=== PATIENT | male | born 1960 | race African-American/Black ===

== ENCOUNTER 2019-05-31 11:35 | Inpatient (IN) | payer OTHER ==
--- NOTE | 2019-05-31 12:07 | PDOC ---
History of Present Illness - General Chief Complaint: Asthma Stated Complaint: ASTHMA Time Seen by Provider: 05/31/19 12:04 History Source: Patient Exam Limitations: No Limitations - History of Present Illness Initial Comments: 05/31/19 12:06 PCP: Kalyn Dasilva ([facility]) Pulm: Diogo Pulido ([facility]) HPI: 58yo M PMH COPD (on CPAP overnight), Asthma (multiple agents), Smoker, Afib (eloquis), HTN, Cocaine abuse, BPH, with multiple admissions for asthma and COPD exacerbations at [facility] with shortness of breath since waking up this morning. Patient reports changing air temperature is a common trigger for him and he assumes the recent snow is what aggravated his asthma. Reports he presented for a treatment because his personal nebulizer is at his significant other's home and he did not have access to it this morning. Tried albuterol 2x last night and 2x this morning. Took his 20mg prednisone this AM. These interventions did not help and he called 911. He has been on a steroid taper from 50 mg prednisone BID to 30 mg BID last week and transitioned to 20mg BID yesterday. Received prednisone at a clinic last week, hasn't followed up with PCP for quite some time, missed March appointment --> insurance will not approve some of his medication including prednisone. Received 2 duonebs en route. Multiple admissions at various hospitals (mostly [facility]) for COPD and Asthma exacerbations. All: NKDA Meds: Per chart PMH: As above PSH: Per chart SHx: Smoking (now on Chantix), Hx Cocaine Use Past History - Travel Traveled outside of the country in the last 30 days: No Close contact w/someone who was outside of country & ill: No - Past Medical History Allergies/Adverse Reactions: Allergies Allergy/AdvReac Type Severity Reaction Status Date / Time No Known Allergies Allergy Verified 05/31/19 12:18 Review of Systems - Review of Systems Able to Perform ROS?: Yes Is the patient limited Martiniquais proficient: Yes Constitutional: Yes: Chills. No: Diaphoresis, Fever, Weakness HEENTM: No: Recent change in vision, Nose Congestion, Throat Pain Respiratory: Yes: Cough, Shortness of Breath, Wheezing, Productive cough ( yellow sputum, 1 week). No: SOB with Exertion, SOB at Rest, Hemoptysis Cardiac (ROS): Yes: Chest Tightness (breathing tightness). No: Chest Pain, Irregular Heart Rate ABD/GI: No: Constipated, Diarrhea, Nausea, Vomiting : No: Burning, Dysuria, Discharge Musculoskeletal: No: Muscle Pain, Muscle Weakness, Neck Pain Integumentary: No: Bruising, Erythema, Pruritus, Rash Neurological: No: Headache, Numbness, Tingling, Weakness Psychiatric: No: Stressors, Change in Appetite Endocrine: No: Increased Hunger, Increased Thirst, Change in Weight Hematologic/Lymphatic: No: Anemia, Blood Clots, Easy Bleeding All Other Systems: Reviewed and Negative *Physical Exam - Vital Signs Last Vital Signs Temp Pulse Resp BP Pulse Ox 97.0 F L 84 120/81 93 L 05/31/19 11:47 05/31/19 11:47 05/31/19 11:47 05/31/19 11:47 - Physical Exam 05/31/19 13:13 VITALS: AFVSS, Satting 100% on 8L mask with nebs running GEN: Obese, mild distress, comfortable. AAOx3. HEENT: Edentulous, NC/AT, EOMI, PERRLA. No facial asymmetry. Moist mucous membranes. Normal voice. CV: S1/S2, RRR, no m/r/g appreciated LUNG: Diffuse wheezes throughout all leblanc, no accessory muscle use, on 8L 100 % Sat, no crackles, rales, rhonchi. GI: Soft, ndnt, +BS, no guarding, no rebound. No masses. Neg CVAT b/l. EXTREMITIES: 2+ distal pulses. No LE edema. No obvious deformities of all extremities. SKIN: Warm, dry, no rashes appreciated. PSYCH: Normal mood and affect. NEURO: Moving all extremities well. ED Treatment Course - LABORATORY CBC & Chemistry Diagram: 05/31/19 13:00 05/31/19 13:00 Medical Decision Making - Medical Decision Making 05/31/19 12:55 58yo M PMH COPD (on CPAP overnight), Asthma (multiple agents), Smoker, Afib ( eloquis), HTN, Cocaine abuse, BPH, with multiple admissions for asthma and COPD exacerbations at [facility] with shortness of breath since waking up this morning. History concerning for medication access, compliance, continued smoking. Diffusely wheezing s/p 2x Duonebs en route, satting 100% on 8L with nebs running. DDX includes: Asthma exacerbation vs COPD exacerbation vs PNA vs superimposed Viral URI - CBC, CMP, Mg, Phos, VBG, Coags, Cardiac Profile - CXR, EKG - Continuous monitoring - 125 Solu-medrol - 2x Duonebs >> reassess >> Continuous Nebs - Low threshold for magnesium administration 05/31/19 14:55 - Patient sounds improved, still wheezing - Flu Swab ordered - 2g MgSulfate ordered - CXR with clear lungs Dispo: Admit Med/Surg for astham exacerbation Discharge - Discharge Information Problems reviewed: Yes Clinical Impression/Diagnosis: COPD (chronic obstructive pulmonary disease) Qualifiers: COPD type: unspecified COPD Qualified Code(s): J44.9 - Chronic obstructive pulmonary disease, unspecified Asthma Qualifiers: Asthma severity: unspecified severity Asthma persistence: unspecified Asthma complication type: with acute exacerbation Qualified Code(s): J45.901 - Unspecified asthma with (acute) exacerbation Condition: Guarded - Follow up/Referral Referrals: Chet Ovalle [Primary Care Provider] - - Patient Discharge Instructions - Post Discharge Activity
[2019-05-31] MEDS ORDERED: ALBUTEROL SO4 2.5/IPRATROPIUM 0.5 INH SOL 3 ML VIAL.NEB. NEB ONE ×2 (12:38→12:48)
[2019-05-31] MEDS ORDERED: methylPREDNISolone NA SUCC 125 MG/2 ML VIAL IVPB ONE (12:39)
[2019-05-31] MEDS ORDERED: methylPREDNISolone NA SUCC 125 MG/2 ML VIAL ONE (12:49)
[2019-05-31] MEDS ORDERED: ALBUTEROL SO4 0.083% IH SOL 2.5 MG/3 ML VIAL.NEB. NEB ONE ×2 (13:13→14:27)
--- NOTE | 2019-05-31 13:21 | PDOC ---
Documentation entered by Catherine Gonsalez SCRIBE, acting as scribe for Daniella Young MD. Daniella Young MD: This documentation has been prepared by the Sunshine finch Brenda, SCRIBE, under my direction and personally reviewed by me in its entirety. I confirm that the documentation accurately reflects all work, treatment, procedures, and medical decision making performed by me. Attending Attestation - Resident Resident Name: ColbyMiguel - ED Attending Attestation I have performed the following: I have examined & evaluated the patient, The case was reviewed & discussed with the resident, I agree w/resident's findings & plan, Exceptions are as noted - HPI HPI: 05/31/19 12:30 The patient is a 58 year old male with a PMH COPD/Asthma (quit smoking on FridayMay 28, reports being intubated in the Summer of 2018), Afib, HTN, Cocaine use, BPH who presents to the ER with a complaint of shortness of breath since waking up this morning. Patient reports changing air temperature is a common trigger for him. Reports he presented for a treatment because his personal nebulizer is at his significant other's home and he didn't have access to it this morning. He has been on a steroid taper from 50 mg prednisone BID to 30 mg BID last week and transitioned to 20mg BID yesterday. All: NKDA Meds: Per chart PMH: As above PSH: SHx: Smoking (now on Chantix), Hx Cocaine Use PCP: Yamile 05/31/19 13:04 05/31/19 13:17 05/31/19 13:19 - Physicial Exam PE: 05/31/19 13:06 GENERAL: The patient is in no acute distress. ENT: Ears normal, nares patent, oropharynx clear without exudates. Moist mucous membranes. NECK: Normal range of motion, supple LUNGS: Breath sounds equal, clear to auscultation bilaterally. No wheezes, and no crackles. HEART:Regular rate and rhythm, normal S1 and S2 without murmur, rub or gallop. ABDOMEN: Soft, nontender, normoactive bowel sounds. EXTREMITIES: Normal range of motion, no edema. NEUROLOGICAL: Cranial nerves II through XII grossly intact. Normal speech. No focal neurological deficits. SKIN: Warm, Dry, normal turgor, no rashes or lesions noted. - Medical Decision Making 05/31/19 13:17 58-year-old male presenting to the emergency department with a complaint of shortness of breath Patient states he has been on 2-week taper of prednisone Today started prednisone 20 mg 05/31/19 13:19 EKG: Normal sinus rhythm, rate of 77 bpm, axis is normal, intervals are normal, no ST elevation or depression, T waves are inverted V5, V6 06/02/19 12:37 Laboratory Tests 05/31/19 05/31/19 05/31/19 13:00 13:00 19:25 WBC 5.2 Hgb 14.9 Hct 46.7 Plt Count 259 BUN 19.5 H Creatinine 1.0 Creatine Kinase 90 Troponin I < 0.02 Influenza A (Rapid) Negative Influenza B (Rapid) Negative CXR: no consolidation Pt continues to have wheezing despite nebs and solumedrol Will need to admit given prior history of intubation this past summer Clinical impression: Severe asthma exacerbation, initial presentation
[2019-05-31 13:29] LABS: BASO % 0.5 % (0-2.0); EOS % 0.8 % (0-4.5); HEMATOCRIT 46.7 % (35.4-49); HEMOGLOBIN 14.9 GM/dL (11.7-16.9); LYMPH % 14.9 % (8-40); MCH 25.7 pg (25.7-33.7); MCHC 31.9 g/dl (32.0-35.9); MEAN CELL VOLUME 80.8 fl (80-96); MONO % 10.1 % (3.8-10.2); NEUT % 73.7 % (42.8-82.8); PLATELET COUNT 259 K/MM3 (134-434); RBC 5.78 M/mm3 (4.00-5.60); WHITE BLOOD COUNT 5.2 K/mm3 (4.0-10.0)
[2019-05-31 13:56] LABS: INR 1.23 (0.83-1.09); PROTHROMBIN TIME (PATIENT) 14.5 SEC (9.7-13.0)
[2019-05-31 13:58] LABS: ACTIVATED PTT 37.2 SECONDS (25.2-36.5)
[2019-05-31 14:04] LABS: VENOUS PC02 51.1 mmHg (38-52); VENOUS PH 7.34 (7.31-7.41)
[2019-05-31 14:30] LABS: ALBUMIN 3.3 g/dl (3.4-5.0); ALK PHOS 78 U/L (45-117); ANION GAP 5 MMOL/L (8-16); BILIRUBIN,TOTAL 0.4 mg/dL (0.2-1); BLOOD UREA NITROGEN 19.5 mg/dL (7-18); CALCIUM 8.2 mg/dL (8.5-10.1); CHLORIDE 107 mmol/L (98-107); CO2 28 mmol/L (21-32); GLUCOSE,RANDOM 126 mg/dL (74-106); MAGNESIUM 2.4 mg/dL (1.8-2.4); PHOSPHOROUS 3.6 mg/dL (2.5-4.9); POTASSIUM 4.7 mmol/L (3.5-5.1); SGOT/AST 17 U/L (15-37); SGPT/ALT 33 U/L (13-61); SODIUM 140 mmol/L (136-145); TOT PROT 6.2 g/dl (6.4-8.2)
[2019-05-31] MEDS ORDERED: MAGNESIUM SULF 50% (8.12 MEQ/2 ML-1 GM VIAL) IVPB ONE (14:55)
[2019-05-31] MEDS ORDERED: AZITHROMYCIN IVPB 500 MG/250 ML BAG IVPB ONE ×2 (17:17→18:59)
--- NOTE | 2019-05-31 17:19 | HP ---
CHIEF COMPLAINT: Shortness of breath PCP: HISTORY OF PRESENT ILLNESS: Patient is a 58 year old male is a history of asthma, COPD (prior intubation at [facility] last year), Afib (on Eliquis), benign prostatic hyperplasia , sleep apnea, congestive heart failure, presents with complaint of shortness of breath. Patient admits symptoms started earlier this morning; believes symptoms were exacerbated by recent change in weather, and the snow. He does admit using an aerosol air freshener around the time of the shortness of breath. He attempted to use his Albuterol inhaler however his nebulizer is at his partner's house, and he was unable to use it. Patient admits recent ED presentation to [facility] where he was discharged with Prednisone taper (currently taking 20mg). Denies missing Prednisone doseage since starting taper. He denies recent sick contacts, subjective fevers, chills, chest pain, palpitations, abdominal pain, nausea, vomiting. ER course was notable for: (1) Duo Nebs, MethylPrednisone, Magnesium Sulfate, (2) (3) Recent Travel: denies PAST MEDICAL HISTORY: Asthma, COPD, Afib, BPH, JOEL, CHF, PAST SURGICAL HISTORY: tonsillectomy Social History: Currently unemployed. 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 Lives with roommate. Smoking: Currently smokes 3-4 cigarettes/ day Alcohol: admits social alcohol consumption Drugs: admits smoking cocaine (last used May 17) Allergies No Known Allergies Allergy (Verified 05/31/19 12:18) HOME MEDICATIONS: REVIEW OF SYSTEMS CONSTITUTIONAL: Absent: fever, chills, diaphoresis, generalized weakness, malaise, loss of appetite, weight change HEENT: Absent: rhinorrhea, nasal congestion, throat pain, throat swelling, difficulty swallowing, mouth swelling, ear pain, eye pain, visual changes CARDIOVASCULAR: Absent: chest pain, syncope, palpitations, irregular heart rate, lightheadedness , peripheral edema RESPIRATORY: Admits: shortness of breath, nonproductive cough. Absent: dyspnea with exertion , orthopnea, wheezing, stridor, hemoptysis GASTROINTESTINAL: Absent: abdominal pain, abdominal distension, nausea, vomiting, diarrhea, constipation, melena, hematochezia GENITOURINARY: Absent: dysuria, frequency, urgency, hesitancy, hematuria, flank pain, genital pain MUSCULOSKELETAL: Absent: myalgia, arthralgia, joint swelling, back pain, neck pain SKIN: Absent: rash, itching, pallor HEMATOLOGIC/IMMUNOLOGIC: Absent: easy bleeding, easy bruising, lymphadenopathy, frequent infections ENDOCRINE: Absent: unexplained weight gain, unexplained weight loss, heat intolerance, cold intolerance NEUROLOGIC: Absent: headache, focal weakness or paresthesias, dizziness, unsteady gait, seizure, mental status changes, bladder or bowel incontinence PSYCHIATRIC: Absent: anxiety, depression, suicidal or homicidal ideation, hallucinations. PHYSICAL EXAMINATION Vital Signs - 24 hr 05/31/19 05/31/19 05/31/19 11:47 11:54 15:07 Temperature 97.0 F L 98.2 F Pulse Rate [ 84 83 Left] Blood Pressure 120/83 Blood Pressure 120/81 114/85 [Left] O2 Sat by Pulse 93 L 100 95 Oximetry (%) GENERAL: Awake, alert, and fully oriented, in no acute distress. HEAD: Normal with no signs of trauma. EYES: Pupils equal, round and reactive to light, extraocular movements intact, sclera anicteric, conjunctiva clear. EARS, NOSE, THROAT: Ears normal, nares patent, oropharynx clear without exudates. Moist mucous membranes. NECK: Normal range of motion, supple without lymphadenopathy. LUNGS: Good inspiratory effort, and air entry bilaterally. Expiratory wheezing auscultated bilaterally (left > right). Negative accessory muscle use. HEART: Regular rate and rhythm, normal S1 and S2 without murmur, rub or gallop. ABDOMEN: Obese abdomen. Soft, nontender, nondistended. Normoactive bowel sounds , no guarding, no rebound tenderness. MUSCULOSKELETAL: Normal range of motion at all joints. No bony deformities or tenderness. Strength 5/5 bilateral upper and lower extremities. EXTREMITIES: 2+ radial, dorsalis pedis pulses bilaterally, warm, well-perfused. No cyanosis. No clubbing. No peripheral edema b/l lower extremities. NEUROLOGICAL: Cranial nerves II-XII grossly intact. Normal speech. Negative gross focal deficits. PSYCHIATRIC: Cooperative. Appropriate mood and affect. SKIN: Warm, dry, normal turgor, no rashes or lesions noted, normal capillary refill. Laboratory Results - last 24 hr 05/31/19 05/31/19 05/31/19 13:00 13:00 13:00 WBC 5.2 RBC 5.78 H Hgb 14.9 Hct 46.7 MCV 80.8 MCH 25.7 MCHC 31.9 L RDW 17.0 H Plt Count 259 MPV 8.0 Absolute Neuts (auto) 3.8 Neutrophils % 73.7 Lymphocytes % 14.9 Monocytes % 10.1 Eosinophils % 0.8 Basophils % 0.5 Nucleated RBC % 0 PT with INR 14.50 H INR 1.23 H PTT (Actin FS) 37.2 H VBG pH POC VBG pCO2 POC VBG pO2 VBG HCO3 VBG O2 Sat (Yovany) VBG Base Excess Sodium 140 Potassium 4.7 Chloride 107 Carbon Dioxide 28 Anion Gap 5 L BUN 19.5 H Creatinine 1.0 Est GFR (CKD-EPI)AfAm 97.08 Est GFR (CKD-EPI)NonAf 83.76 Random Glucose 126 H Calcium 8.2 L Phosphorus 3.6 Magnesium 2.4 Total Bilirubin 0.4 AST 17 ALT 33 Alkaline Phosphatase 78 Creatine Kinase 90 Troponin I < 0.02 Total Protein 6.2 L Albumin 3.3 L 05/31/19 13:00 WBC RBC Hgb Hct MCV MCH MCHC RDW Plt Count MPV Absolute Neuts (auto) Neutrophils % Lymphocytes % Monocytes % Eosinophils % Basophils % Nucleated RBC % PT with INR INR PTT (Actin FS) VBG pH 7.34 POC VBG pCO2 51.1 POC VBG pO2 129 H VBG HCO3 26.6 VBG O2 Sat (Yovany) 98.2 H VBG Base Excess 0.4 Sodium Potassium Chloride Carbon Dioxide Anion Gap BUN Creatinine Est GFR (CKD-EPI)AfAm Est GFR (CKD-EPI)NonAf Random Glucose Calcium Phosphorus Magnesium Total Bilirubin AST ALT Alkaline Phosphatase Creatine Kinase Troponin I Total Protein Albumin ASSESSMENT/PLAN: Patient is a 58 year old male is a history of asthma, COPD (prior intubation at [facility] last year), Afib (on Eliquis), benign prostatic hyperplasia , sleep apnea, congestive heart failure, presents with complaint of shortness of breath. COPD exacerbation -Chest radiograph -MethyPrednisone 125mg IV in ED. Continue MethyPrednisone 60mg IV Q8 Hours -DuoNebs Q6 hours standing. Albuterol nebulizer Q4 hours PRN -Patient recieved Magnesium Sulfate 2grams IV in ED -Azithromycin 500mg IV; followed by Axithromycin 250mg IV daily -total three days -Currently saturating well on 3L supplemental oxygen via face mask. Titrate to ensure oxygen saturation greater than 90% -Follow chest radiograph tomorrow morning Afib -Currently rate controlled. Continue Carvedilol 25mg PO BID -Eliquis 5mg PO BID Obstructive sleep apnea -Will continue evening CPAP Systolic heart failure -Currently not in exacerbation -Continue Furosemide 20mg PO BID -Spironolactone 25mg PO daily -Entresto 1 tab PO daily -Obtain cardiac transthoracic ECHO Benign prostatic hyperplasia -Continue Tamsulosin 0.4mg PO daily FEN -No IV fluids indicated -Follow BMP -Sodium controlled diet. Prophylaxis -Eliquis 5mg PO BID Disposition -Admit to medical surgical floor Visit type - Emergency Visit Emergency Visit: Yes ED Registration Date: 05/31/19 Care time: The patient presented to the Emergency Department on the above date and was hospitalized for further evaluation of their emergent condition. - New Patient This patient is new to me today: Yes Date on this admission: 05/31/19 - Critical Care Critical Care patient: No ATTENDING PHYSICIAN STATEMENT I saw and evaluated the patient. I reviewed the resident's note and discussed the case with the resident. I agree with the resident's findings and plan as documented. SUBJECTIVE: OBJECTIVE: ASSESSMENT AND PLAN:
--- NOTE | 2019-05-31 17:36 | PN ---
Teaching Attending Note Name of Resident: Michael Goldberg ATTENDING PHYSICIAN STATEMENT I saw and evaluated the patient. I reviewed the resident's note and discussed the case with the resident. I agree with the resident's findings and plan as documented. SUBJECTIVE: Complains of SOB since last night. No cough/sputum/Hemoptysis/CP. Last cocaine use May 17. OBJECTIVE: Afebrile, Hemodynamically Stable. Last Vital Signs Temp Pulse Resp BP Pulse Ox 98.2 F 83 114/85 95 05/31/19 15:07 05/31/19 15:07 05/31/19 15:07 05/31/19 15:07 HEENT - Atraumatic, Normocephalic. Heart - S1, S2, RRR Lungs - bilateral wheeze. Abdomen - soft, non-tender. Bowel Sounds normal. Extremities - no edema, no calf tenderness. Neuro - AAO x 3. Tone/Power normal all extremities. Laboratory Results - last 24 hr 05/31/19 05/31/19 05/31/19 13:00 13:00 13:00 WBC 5.2 RBC 5.78 H Hgb 14.9 Hct 46.7 MCV 80.8 MCH 25.7 MCHC 31.9 L RDW 17.0 H Plt Count 259 MPV 8.0 Absolute Neuts (auto) 3.8 Neutrophils % 73.7 Lymphocytes % 14.9 Monocytes % 10.1 Eosinophils % 0.8 Basophils % 0.5 Nucleated RBC % 0 PT with INR 14.50 H INR 1.23 H PTT (Actin FS) 37.2 H VBG pH POC VBG pCO2 POC VBG pO2 VBG HCO3 VBG O2 Sat (Yovany) VBG Base Excess Sodium 140 Potassium 4.7 Chloride 107 Carbon Dioxide 28 Anion Gap 5 L BUN 19.5 H Creatinine 1.0 Est GFR (CKD-EPI)AfAm 97.08 Est GFR (CKD-EPI)NonAf 83.76 Random Glucose 126 H Calcium 8.2 L Phosphorus 3.6 Magnesium 2.4 Total Bilirubin 0.4 AST 17 ALT 33 Alkaline Phosphatase 78 Creatine Kinase 90 Troponin I < 0.02 Total Protein 6.2 L Albumin 3.3 L 05/31/19 13:00 WBC RBC Hgb Hct MCV MCH MCHC RDW Plt Count MPV Absolute Neuts (auto) Neutrophils % Lymphocytes % Monocytes % Eosinophils % Basophils % Nucleated RBC % PT with INR INR PTT (Actin FS) VBG pH 7.34 POC VBG pCO2 51.1 POC VBG pO2 129 H VBG HCO3 26.6 VBG O2 Sat (Yovany) 98.2 H VBG Base Excess 0.4 Sodium Potassium Chloride Carbon Dioxide Anion Gap BUN Creatinine Est GFR (CKD-EPI)AfAm Est GFR (CKD-EPI)NonAf Random Glucose Calcium Phosphorus Magnesium Total Bilirubin AST ALT Alkaline Phosphatase Creatine Kinase Troponin I Total Protein Albumin Current Medications Generic Name Dose Route Start Last Admin Trade Name Freq PRN Reason Stop Dose Admin Albuterol Sulfate 1 amp 05/31/19 17:16 Ventolin 0.083% Nebulizer Soln - NEB Q4H PRN SHORT OF BREATH/WHEEZING Albuterol/Ipratropium 1 amp 05/31/19 20:00 Duoneb - NEB RQID CUCA Azithromycin 500 mg in 250 mls @ 250 mls/hr 05/31/19 17:17 Zithromax 500mg Ivpb (Pre-Docked) IVPB 05/31/19 18:16 ONCE ONE Azithromycin 250 mg/ Dextrose 250 mls @ 250 mls/hr 06/01/19 10:00 IVPB 06/03/19 09:59 DAILY CUCA Methylprednisolone Sodium Succinate 40 mg 05/31/19 18:00 Solu-Medrol - IVPUSH Q8H-IV CUCA Home Medications Medication Instructions Recorded Apixaban [Eliquis] 5 mg PO BID 05/31/19 Aspirin [Aspirin EC] 81 mg PO DAILY 05/31/19 Budesonide/Formeterol Fumarate 1 puff IH BID 05/31/19 [SYMBICORT 160/4.5mcg -] Carvedilol 25 mg PO DAILY 05/31/19 Furosemide 20 mg PO BID 05/31/19 Ipratropium/Albuterol Sulfate 1 puff IH Q6H PRN 05/31/19 [Combivent Respimat 20-100 Mcg] Omeprazole 40 mg PO DAILY 05/31/19 Sacubitril/Valsartan [Entresto 24 1 tablet PO DAILY 05/31/19 mg-26 mg Tablet] Spironolactone 25 mg PO DAILY 05/31/19 Tamsulosin HCl 0.4 mg PO DAILY 05/31/19 ASSESSMENT AND PLAN: 58 year old male with history of Asthma/COPD (prior intubation 2018), JOEL on CPAP at night, Polysubstance Abuse (cocaine, tobacco), Atrial fibrillation (on Eliquis), HTN, BPH, CHF, presents with increasing SOB since last evening. Denies productive cough/chest pain/hemoptysis/fevers/chills. 1. Acute Asthma/COPD Exacerbation CXR - no acute cardiopulmonary findings. SpO2 95% on 2L via NC Supplemental O2 as needed, IV Solumedrol, DuoNebs, Azithromycin. Continue Symbicort. Respiratory Status stable. 2. JOEL on CPAP at night- resume 3. Polysubstance Abuse - cocaine, tobacco Unclear if cocaine is involved in current exacerbation, reports last use Apr. Urine toxicology requested. Counseled and offered Nicotine patch. 4. HTN - continue Coreg (consider holding if Utox positive for cocaine), Spironolactone. Entresto. 5. BPH - continue Tamsulosin. 6. Atrial Fibrillation - on Coreg, Eliquis, and ? 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 7. Hx of CHF - on Entresto, Lasix, Spironolactone ?systolic ?sec to cocaine. No evidence of decompensation. No prior Echo on record - Echo ordered. DVT Px - on Eliquis
[2019-05-31] MEDS ORDERED: methylPREDNISolone NA SUCC 40 MG/1 ML VIAL ONE (19:00)
[2019-05-31] MEDS: methylPREDNISolone NA SUCC 40 MG/1 ML VIAL IVPUSH SCH (19:12)
[2019-05-31] MEDS: FUROSEMIDE 20 MG TABLET (FP) PO SCH (21:34)
[2019-05-31] MEDS: APIXABAN 5 MG TABLET PO SCH (21:34)
[2019-05-31] MEDS: ALBUTEROL SO4 2.5/IPRATROPIUM 0.5 INH SOL 3 ML VIAL.NEB. NEB SCH (22:00)
[2019-05-31] MEDS: BUDESONIDE/FORMETEROL FUMARATE 160/4.5 mcg INHALER IH SCH (22:25)
[2019-05-31] MEDS ORDERED: ACETAMINOPHEN 650 MG/20.3 ML ORAL SOLUTION (CUPS) PO ONE (22:38)
[2019-05-31 22:54] LABS: METHADONE, UR NEGATIVE ng/ml (CUTOFF=300); OPIATES, URI NEGATIVE ng/ml (CUTOFF=300); PHENCYCLIDINE,URINE NEGATIVE ng/ml (CUTOFF=25); URINE AMPHETAMINES NEGATIVE ng/ml (CUTOFF=500); URINE BARBITURATES NEGATIVE ng/ml (CUTOFF=200); URINE BENZODIAZEPINES NEGATIVE ng/ml (CUTOFF=200)
[2019-05-31 22:57] LABS: COCAINE, UR POSITIVE ng/ml (CUTOFF=300)
[2019-06-01 00:29] VITALS: BMI 40.4
[2019-06-01] MEDS: methylPREDNISolone NA SUCC 40 MG/1 ML VIAL IVPUSH SCH ×3 (02:25→18:05)
[2019-06-01] MEDS: ALBUTEROL SO4 0.083% IH SOL 2.5 MG/3 ML VIAL.NEB. NEB PRN (03:41)
[2019-06-01 08:10] LABS: HEMATOCRIT 43.3 % (35.4-49); MCHC 32.3 g/dl (32.0-35.9); MEAN CELL VOLUME 80.3 fl (80-96); MEAN PLT VOLUME 8.1 fl (7.5-11.1); PLATELET COUNT 255 K/MM3 (134-434); RBC 5.39 M/mm3 (4.00-5.60); RDW 16.7 % (11.9-15.9); WHITE BLOOD COUNT 5.5 K/mm3 (4.0-10.0)
[2019-06-01 08:23] LABS: ALBUMIN 3.4 g/dl (3.4-5.0); BILIRUBIN,TOTAL 0.3 mg/dL (0.2-1); BLOOD UREA NITROGEN 19.1 mg/dL (7-18); CALCIUM 8.8 mg/dL (8.5-10.1); MAGNESIUM 2.5 mg/dL (1.8-2.4); PHOSPHOROUS 3.2 mg/dL (2.5-4.9); POTASSIUM 4.7 mmol/L (3.5-5.1); TOT PROT 6.6 g/dl (6.4-8.2)
[2019-06-01] MEDS: ALBUTEROL SO4 2.5/IPRATROPIUM 0.5 INH SOL 3 ML VIAL.NEB. NEB SCH ×3 (08:24→20:35)
--- NOTE | 2019-06-01 09:31 | EKG ---
Test Reason : Blood Pressure : / mmHG Vent. Rate : 077 BPM Atrial Rate : 077 BPM P-R Int : 154 ms QRS Dur : 090 ms QT Int : 350 ms P-R-T Axes : 074 -08 041 degrees QTc Int : 396 ms POOR DATA QUALITY, INTERPRETATION MAY BE ADVERSELY AFFECTED NORMAL SINUS RHYTHM POSSIBLE LEFT ATRIAL ENLARGEMENT ANTERIOR INFARCT , AGE UNDETERMINED ABNORMAL ECG NO PREVIOUS ECGS AVAILABLE Confirmed by Mehrdad Rodríguez MD ([id number]) on 06/01/2019 9:30:41 AM Referred By: Confirmed By:Mehrdad Rodríguez MD
[2019-06-01] MEDS ORDERED: ENOXAPARIN NA (PORCINE) 40 MG/0.4 ML DISP.SYRIN SQ SCH (10:00)
[2019-06-01] MEDS ORDERED: PATIENT'S OWN MEDICATION (NON-FORMULARY) (Omeprazole [Omeprazole] 40 MG) PO SCH (10:00)
[2019-06-01] MEDS: BUDESONIDE/FORMETEROL FUMARATE 160/4.5 mcg INHALER IH SCH ×2 (10:41→21:53)
[2019-06-01] MEDS ORDERED: PT OWN MED DRAWER 7, Y5N ONE (10:44)
[2019-06-01] MEDS: PANTOPRAZOLE 40 MG TABLET (FP) PO SCH (10:46)
[2019-06-01] MEDS: TAMSULOSIN HCL 0.4 MG CAP PO SCH (10:46)
[2019-06-01] MEDS: FUROSEMIDE 20 MG TABLET (FP) PO SCH ×2 (10:46→21:47)
[2019-06-01] MEDS: APIXABAN 5 MG TABLET PO SCH ×2 (10:46→21:47)
[2019-06-01] MEDS: SPIRONOLACTONE 25 MG TABLET (FP) PO SCH (10:46)
[2019-06-01] MEDS: CARVEDILOL 25 MG TABLET (FP) PO SCH (10:46)
[2019-06-01] MEDS: ASPIRIN COATED 81 MG TABLET.EC PO SCH (10:47)
[2019-06-01] MEDS: AZITHROMYCIN IVPB 250 MG in DEXTROSE 5%-WATER - 250 ML IVPB SCH (11:20)
--- NOTE | 2019-06-01 12:54 | ECHO ---
Version: 1 Name: ODIN BAZAN Exam: Adult Echocardiogram Study Date: 06/01/2019, 11:33 AM Age: 58 Years MMode/2D Measurements & Calculations LAV (MOD-bp): 60.0 ml Doppler Measurements & Calculations MV E max jesus: 87.3 cm/sec Med E/e': 10.6 MV A max jesus: 79.5 cm/sec Med Peak E' Jesus: 8.3 cm/sec MV E/A: 1.10 Lat E/e': 7.2 Lat Peak E' Jesus: 12.1 cm/sec MR max P.6 mmHg Ao max P.7 mmHg Ao V2 max: 138.5 cm/sec TR max jesus: 243.0 cm/sec TR max P.6 mmHg Procedure The study was technically limited with all images being suboptimal in quality. Left Ventricle The left ventricular size, thickness and function are normal. Ejection Fraction = 55%. Left Ventricu lar Filling pattern is normal for age. Right Ventricle The right ventricle is normal in size and function. Atria Normal left and right atrial size and function. Mitral Valve There is mild mitral annular calcification. There is mild mitral regurgitation. Tricuspid Valve The tricuspid valve is normal in structure and function. There is trace tricuspid regurgitation. Aortic Valve The aortic valve is normal in structure and function. Pulmonic Valve The pulmonic valve is not well visualized. Great Vessels The aortic root is normal size. Normal aortic arch, descending and ascending aorta. Pericardium/Pleura There is no pericardial effusion. Summary Statements The study was technically limited with all images being suboptimal in quality. The left ventricular size, thickness and function are normal Ejection Fraction = 55%. Left Ventricular Filling pattern is normal for age. The right ventricle is normal in size and function. Normal left and right atrial size and function. There is mild mitral annular calcification. There is mild mitral regurgitation. The tricuspid valve is normal in structure and function. There is trace tricuspid regurgitation. The aortic valve is normal in structure and function. The pulmonic valve is not well visualized. The aortic root is normal size. Normal aortic arch, descending and ascending aorta Acosta Hall 06/01/2019, 12:53 PM Ordering Physician: ELFEGO FERNANDEZ Performed By: Vania Rhodes
[2019-06-01] MEDS: SACUBITRIL/VALSARTAN 24 MG-26 MG TABLET PO SCH (14:32)
[2019-06-01] MEDS ORDERED: ALBUTEROL SO4 2.5/IPRATROPIUM 0.5 INH SOL 3 ML VIAL.NEB. NEB SCH (16:00)
--- NOTE | 2019-06-01 18:01 | PN ---
Physical Exam: SUBJECTIVE: Patient seen and examined. Refusing to wear nasal cannula because he complains that it is drying his nose, requesting that we humidify the air. Still complains of SOB. He does not use oxygen at home. Denies chest pain, abd pain, fever, chills. No acute events overnight. Patient able to eat food without issues. OBJECTIVE: Vital Signs Period Temp Pulse Resp BP Sys/Sibley Pulse Ox Last 24 Hr 97.4 F-98.5 F 77-99 18-22 103-131/65-89 98-100 GENERAL: The patient is awake, alert, and fully oriented, in no acute distress. HEAD: Normal with no signs of trauma. EYES: EOMI, no ptosis ENT: dry mucous membranes NECK: Trachea midline, full range of motion, supple. LUNGS: inspiratory and expiratory wheezing bilaterally, no accessory muscle use HEART: Regular rate and rhythm, S1, S2 without murmur, rub or gallop. ABDOMEN: Soft, nontender, nondistended, normoactive bowel sounds, no guarding, no rebound EXTREMITIES: 2+ pulses, warm, well-perfused, no edema. NEUROLOGICAL: Normal speech, gait not observed PSYCH: Normal mood, normal affect SKIN: Warm, dry, normal turgor, no rashes or lesions noted Laboratory Results - last 24 hr 05/31/19 05/31/19 06/01/19 19:25 22:15 07:20 WBC 5.5 RBC 5.39 Hgb 14.0 Hct 43.3 MCV 80.3 MCH 26.0 MCHC 32.3 RDW 16.7 H Plt Count 255 MPV 8.1 Sodium Potassium Chloride Carbon Dioxide Anion Gap BUN Creatinine Est GFR (CKD-EPI)AfAm Est GFR (CKD-EPI)NonAf Random Glucose Calcium Phosphorus Magnesium Total Bilirubin AST ALT Alkaline Phosphatase Total Protein Albumin Opiates Screen Negative Methadone Screen Negative Barbiturate Screen Negative Phencyclidine Screen Negative Ur Amphetamines Screen Negative MDMA (Ecstasy) Screen Negative Benzodiazepines Screen Negative Cocaine Screen Positive A* U Marijuana (THC) Screen Negative Influenza A (Rapid) Negative Influenza B (Rapid) Negative 06/01/19 07:20 WBC RBC Hgb Hct MCV MCH MCHC RDW Plt Count MPV Sodium 140 Potassium 4.7 Chloride 105 Carbon Dioxide 30 Anion Gap 5 L BUN 19.1 H Creatinine 1.0 Est GFR (CKD-EPI)AfAm 97.08 Est GFR (CKD-EPI)NonAf 83.76 Random Glucose 116 H Calcium 8.8 Phosphorus 3.2 Magnesium 2.5 H Total Bilirubin 0.3 AST 12 L ALT 34 Alkaline Phosphatase 77 Total Protein 6.6 Albumin 3.4 Opiates Screen Methadone Screen Barbiturate Screen Phencyclidine Screen Ur Amphetamines Screen MDMA (Ecstasy) Screen Benzodiazepines Screen Cocaine Screen U Marijuana (THC) Screen Influenza A (Rapid) Influenza B (Rapid) Active Medications Generic Name Dose Route Start Last Admin Trade Name Freq PRN Reason Stop Dose Admin Acetaminophen 650 mg 05/31/19 21:03 Tylenol - PO Q6H PRN Fever Or Pain Albuterol Sulfate 1 amp 05/31/19 17:16 06/01/19 03:41 Ventolin 0.083% Nebulizer Soln - NEB 1 amp Q4H PRN Administration SHORT OF BREATH/WHEEZING Albuterol/Ipratropium 1 amp 06/01/19 20:00 Duoneb - NEB RQID [facility]CA Apixaban 5 mg 05/31/19 22:00 06/01/19 10:46 Eliquis - PO 5 mg BID [facility]CA Administration Aspirin 81 mg 06/01/19 10:00 06/01/19 10:47 Ecotrin - PO 81 mg DAILY [facility]CA Administration Budesonide/Formoterol Fumarate 1 puff 05/31/19 22:00 06/01/19 10:41 Symbicort 160/4.5mcg - IH Not Given BID [facility]CA Carvedilol 25 mg 06/01/19 10:00 06/01/19 10:46 Coreg - PO 25 mg DAILY [facility]CA Administration Furosemide 20 mg 05/31/19 22:00 06/01/19 10:46 Lasix - PO 20 mg BID [facility]CA Administration Azithromycin 250 mg/ Dextrose 250 mls @ 250 mls/hr 06/01/19 10:00 06/01/19 11 :20 IVPB 06/03/19 09:59 250 mls/hr DAILY [facility] Administration Methylprednisolone Sodium Succinate 40 mg 05/31/19 18:00 06/01/19 10:46 Solu-Medrol - IVPUSH 40 mg Q8H-IV [facility]CA Administration Pantoprazole Sodium 40 mg 06/01/19 10:00 06/01/19 10:46 Protonix - PO 40 mg DAILY [facility]CA Administration Sacubitril/Valsartan 1 tab 01/07/20 10:00 06/01/19 14:32 Entresto 24 Mg-26 Mg Tablet PO 1 tab DAILY [facility]CA Administration Spironolactone 25 mg 06/01/19 10:00 06/01/19 10:46 Aldactone - PO 25 mg DAILY [facility] Administration Tamsulosin HCl 0.4 mg 06/01/19 10:00 06/01/19 10:46 Flomax - PO 0.4 mg DAILY [facility]CA Administration ASSESSMENT/PLAN: 58 y/o/f with PMHx of asthma, COPD (prior intubation at [facility] last year), Afib (on Eliquis), benign prostatic hyperplasia, sleep apnea, congestive heart failure, presented with complaint of shortness of breath. #COPD exacerbation - Repeat CXR without without acute process seen - MethylPrednisone 125mg IV in ED. Continue MethyPrednisone 60mg IV Q8 Hours - DuoNebs Q6 hours standing. Albuterol nebulizer Q4 hours PRN - Patient recieved Magnesium Sulfate 2grams IV in ED - Azithromycin 500mg IV x1; followed by Axithromycin 250mg IV daily - total three days. started on 05/31 - Currently on nasal cannula, Wean to room air as tolerated #Afib - Currently rate controlled. Continue Carvedilol 25mg PO BID - Eliquis 5mg PO BID #Obstructive sleep apnea - Will continue evening CPAP #Systolic heart failure - Currently not in exacerbation - Continue Furosemide 20mg PO BID - Spironolactone 25mg PO daily - Entresto 1 tab PO daily - ECHO with EF of 55%, no significant abnormalities - CXR without evidence of pleural effusions #Benign prostatic hyperplasia - Continue Tamsulosin 0.4mg PO daily #FEN - No IV fluids indicated - Follow BMP - Sodium controlled diet. #Prophylaxis - Eliquis 5mg PO BID #Disposition - continue to monitor for clinical improvement Visit type - Emergency Visit Emergency Visit: Yes ED Registration Date: 05/31/19 Care time: The patient presented to the Emergency Department on the above date and was hospitalized for further evaluation of their emergent condition. - New Patient This patient is new to me today: Yes Date on this admission: 06/01/19 - Critical Care Critical Care patient: No ATTENDING PHYSICIAN STATEMENT I saw and evaluated the patient. I reviewed the resident's note and discussed the case with the resident. I agree with the resident's findings and plan as documented. SUBJECTIVE: OBJECTIVE: ASSESSMENT AND PLAN:
--- NOTE | 2019-06-01 19:25 | PN ---
Teaching Attending Note Name of Resident: Veronique Christiansen ATTENDING PHYSICIAN STATEMENT I saw and evaluated the patient. I reviewed the resident's note and discussed the case with the resident. I agree with the resident's findings and plan as documented. SUBJECTIVE: SOB , cough . OBJECTIVE: NAD Cv : RRR Lungs: generalized wheezing. Ext : No edema Abd: obese, soft, NT, ND ASSESSMENT AND PLAN: 58 y/o man with h/o COPD (prior intubation 2018), JOEL on CPAP at night, Polysubstance Abuse (cocaine, tobacco), Atrial fibrillation (on Eliquis), HTN, BPH, CHF who presented with worsening SOB and was found to have acute COPD exacerbation 1- Acute COPD exacerbation : - cont steroids, and NEbs - add humidified O2 - azitho for antiinflammatory effect - BIPPA at night - smoking cessation - neg flu swab 2- HTN: cont coreg, Entresto. 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
[2019-06-02] MEDS: methylPREDNISolone NA SUCC 40 MG/1 ML VIAL IVPUSH SCH ×3 (01:33→18:09)
[2019-06-02] MEDS: ACETAMINOPHEN 325 MG TABLET (FP) PO PRN (04:00)
[2019-06-02] MEDS: ALBUTEROL SO4 2.5/IPRATROPIUM 0.5 INH SOL 3 ML VIAL.NEB. NEB SCH ×4 (08:01→20:27)
--- NOTE | 2019-06-02 09:12 | PN ---
Teaching Attending Note Name of Resident: Jessee Booker ATTENDING PHYSICIAN STATEMENT I saw and evaluated the patient. I reviewed the resident's note and discussed the case with the resident. I agree with the resident's findings and plan as documented. Seen and examined; please see resident note for further historical information. I personally verified all escalante historical information and exam findings. Personally interpreted all imaging and diagnostics and reviewed appropriate consults. I reviewed all labs and vital signs as per resident note and EMR as documented. I agree with the above assessment and plan unless supplemented by myself in the following. Being seen by cardiology. 10 item review of systems was completed and is negative aside from history of present illness VS, labs, imaging reviewed NAD, AAO, resting comfortably in bed. RRR s1/2 no mgr Normal muscle tone, moves all 5 extremities with normal apparent strength Neck is supple, trachea midline, no suzanne LN Lungs CTAB with sym expansion NT ND +BS no suzanne organomegaly CN2-12 wnl; no FND NC AT EOMI PERRLA Normal mood, appropriate behavior, euthymic affect No skin breakdown or rashes noted Admission EKG reviewed Echocardiogram reviewed Cardiology consultation reviewed CXR on admission noted; no acute process per radiology A/P: Patient presents with shortness of breath secondary to COPD exacerbation, potential component from cocaine abuse. Pending pulmonology consultation Problems include: -Acute on chronic respiratory failure 2/2 COPD exacerbation (Recent OP tx failure; on steroids and bronchodilators with humidified O2 PRN. Complicated by obstructive sleep apnea. Counseled regarding smoking cessation. Continue azithromycin for anti-inflammatory effect. Flu swab noted to be negative. Admission chest x-ray noted. Echo noted; check BNP. Pending pulmonology consultation) -History of uncontrolled hypertension; Coreg, Entresto will be continued. -Cocaine abuse, counseling offered. -History of atrial fibrillation, elevated CV2 score on Eliquis. Baseline NYHA I -II symptoms -History of BPH -History of CHF on Entresto (LVEF noted to be normal; FU BMP and continue home meds) -Morbid Obesity (BMI 39.9; r/o pickwickian syndrome) -JOEL on NIMV qHS Full Code
[2019-06-02 09:20] LABS: ALBUMIN 3.3 g/dl (3.4-5.0); BILIRUBIN,TOTAL 0.4 mg/dL (0.2-1); BLOOD UREA NITROGEN 17.4 mg/dL (7-18); CALCIUM 8.3 mg/dL (8.5-10.1); POTASSIUM 4.6 mmol/L (3.5-5.1); TOT PROT 6.4 g/dl (6.4-8.2)
--- NOTE | 2019-06-02 09:32 | PN ---
Physical Exam: SUBJECTIVE: Patient seen and examined. States that his breathing is feeling better today compared to yesterday. Denies chest pain, abd pain, fever, chills. No acute events overnight. OBJECTIVE: Vital Signs Period Temp Pulse Resp BP Sys/Sibley Pulse Ox Last 24 Hr 97.8 F-98.2 F 63-84 20-24 119-139/70-84 94-98 GENERAL: The patient is awake, alert, and fully oriented, in no acute distress. HEAD: Normal with no signs of trauma. EYES: EOMI, no ptosis ENT: dry mucous membranes NECK: Trachea midline, full range of motion, supple. LUNGS: inspiratory and expiratory wheezing bilaterally, no accessory muscle use HEART: irregularly irregular ABDOMEN: Soft, nontender, nondistended, normoactive bowel sounds, no guarding, no rebound EXTREMITIES: 2+ pulses, warm, well-perfused, no edema NEUROLOGICAL: Normal speech, gait not observed PSYCH: Normal mood, normal affect SKIN: Warm, dry, normal turgor, no rashes or lesions noted Active Medications Generic Name Dose Route Start Last Admin Trade Name Freq PRN Reason Stop Dose Admin Acetaminophen 650 mg 05/31/19 21:03 06/02/19 04:00 Tylenol - PO 650 mg Q6H PRN Administration Fever Or Pain Albuterol Sulfate 1 amp 05/31/19 17:16 06/01/19 03:41 Ventolin 0.083% Nebulizer Soln - NEB 1 amp Q4H PRN Administration SHORT OF BREATH/WHEEZING Albuterol/Ipratropium 1 amp 06/01/19 20:00 06/02/19 08:01 Duoneb - NEB 1 amp RQID CUCA Administration Apixaban 5 mg 05/31/19 22:00 06/01/19 21:47 Eliquis - PO 5 mg BID CUCA Administration Aspirin 81 mg 06/01/19 10:00 06/01/19 10:47 Ecotrin - PO 81 mg DAILY CUCA Administration Budesonide/Formoterol Fumarate 1 puff 05/31/19 22:00 06/01/19 21:53 Symbicort 160/4.5mcg - IH Not Given BID CUCA Carvedilol 25 mg 06/01/19 10:00 06/01/19 10:46 Coreg - PO 25 mg DAILY CUCA Administration Furosemide 20 mg 05/31/19 22:00 06/01/19 21:47 Lasix - PO 20 mg BID CUCA Administration Azithromycin 250 mg/ Dextrose 250 mls @ 250 mls/hr 06/01/19 10:00 06/01/19 11 :20 IVPB 06/03/19 09:59 250 mls/hr DAILY CUCA Administration Methylprednisolone Sodium Succinate 40 mg 05/31/19 18:00 06/02/19 01:33 Solu-Medrol - IVPUSH 40 mg Q8H-IV CUCA Administration Pantoprazole Sodium 40 mg 06/01/19 10:00 06/01/19 10:46 Protonix - PO 40 mg DAILY CUCA Administration Sacubitril/Valsartan 1 tab 06/01/19 10:00 06/01/19 14:32 Entresto 24 Mg-26 Mg Tablet PO 1 tab DAILY CUCA Administration Spironolactone 25 mg 06/01/19 10:00 06/01/19 10:46 Aldactone - PO 25 mg DAILY CUCA Administration Tamsulosin HCl 0.4 mg 06/01/19 10:00 06/01/19 10:46 Flomax - PO 0.4 mg DAILY CUCA Administration Tiotropium [place] 2 puff 06/02/19 10:00 Spiriva Respimat IH DAILY CUCA ASSESSMENT/PLAN: 58 y/o/f with PMHx of asthma, COPD (prior intubation at [facility] last year), Afib (on Eliquis), benign prostatic hyperplasia, sleep apnea, congestive heart failure, presented with complaint of shortness of breath. #COPD exacerbation - Repeat CXR without acute process seen. - MethylPrednisone 125mg IV in ED. Continue MethyPrednisone 40mg IV Q8 Hours - DuoNebs Q6h standing. Albuterol nebulizer Q4 hours PRN. - Started on Tiotropium [place] 2puffs daily - Patient recieved Magnesium Sulfate 2grams IV in ED - Azithromycin 500mg IV x1; followed by Axithromycin 250mg IV daily - total three days. started on 05/31 - Wean to room air as tolerated - Pre/Post ordered to assess oxygen needs - Pulm consulted #Afib - Currently rate controlled. Continue Carvedilol 25mg PO BID - Eliquis 5mg PO BID #Obstructive sleep apnea - Will continue evening CPAP #Systolic heart failure - Currently not in exacerbation - Continue Furosemide 20mg PO BID - Spironolactone 25mg PO daily - Entresto 1 tab PO daily - ECHO with EF of 55%, no significant abnormalities - CXR without evidence of pleural effusions - BNP 279 #Benign prostatic hyperplasia - Continue Tamsulosin 0.4mg PO daily #FEN - No IV fluids indicated - Monitor and replete lytes as needed - Sodium controlled diet. #Prophylaxis - Eliquis 5mg PO BID #Disposition - continue to monitor for clinical improvement Visit type - Emergency Visit Emergency Visit: Yes ED Registration Date: 05/31/19 Care time: The patient presented to the Emergency Department on the above date and was hospitalized for further evaluation of their emergent condition. - New Patient This patient is new to me today: No - Critical Care Critical Care patient: No ATTENDING PHYSICIAN STATEMENT I saw and evaluated the patient. I reviewed the resident's note and discussed the case with the resident. I agree with the resident's findings and plan as documented. SUBJECTIVE: OBJECTIVE: ASSESSMENT AND PLAN:
[2019-06-02] MEDS: BUDESONIDE/FORMETEROL FUMARATE 160/4.5 mcg INHALER IH SCH ×2 (10:01→22:29)
[2019-06-02] MEDS ORDERED: PT OWN MED DRAWER 7, Y5N ONE (10:12)
[2019-06-02] MEDS: AZITHROMYCIN IVPB 250 MG in DEXTROSE 5%-WATER - 250 ML IVPB SCH (10:27)
[2019-06-02] MEDS: TIOTROPIUM BROMIDE 2.5 MCG (SPIRIVA) RESPIMAT INHALER IH SCH (10:27)
[2019-06-02] MEDS: PANTOPRAZOLE 40 MG TABLET (FP) PO SCH (10:32)
[2019-06-02] MEDS: FUROSEMIDE 20 MG TABLET (FP) PO SCH ×2 (10:32→22:29)
[2019-06-02] MEDS: TAMSULOSIN HCL 0.4 MG CAP PO SCH (10:35)
[2019-06-02] MEDS: SACUBITRIL/VALSARTAN 24 MG-26 MG TABLET PO SCH (10:36)
[2019-06-02] MEDS: SPIRONOLACTONE 25 MG TABLET (FP) PO SCH (10:36)
[2019-06-02] MEDS: CARVEDILOL 25 MG TABLET (FP) PO SCH (10:36)
[2019-06-02] MEDS: ASPIRIN COATED 81 MG TABLET.EC PO SCH (10:36)
[2019-06-02] MEDS: APIXABAN 5 MG TABLET PO SCH ×2 (10:36→22:29)
[2019-06-03] MEDS: ALBUTEROL SO4 0.083% IH SOL 2.5 MG/3 ML VIAL.NEB. NEB PRN (02:15)
[2019-06-03] MEDS: methylPREDNISolone NA SUCC 40 MG/1 ML VIAL IVPUSH SCH ×3 (02:39→17:45)
[2019-06-03] MEDS: ALBUTEROL SO4 2.5/IPRATROPIUM 0.5 INH SOL 3 ML VIAL.NEB. NEB SCH ×4 (07:50→21:55)
[2019-06-03] MEDS: ACETAMINOPHEN 325 MG TABLET (FP) PO PRN ×2 (08:04→20:23)
[2019-06-03 09:51] LABS: BLOOD UREA NITROGEN 23.1 mg/dL (7-18); CALCIUM 8.5 mg/dL (8.5-10.1); POTASSIUM 4.4 mmol/L (3.5-5.1)
[2019-06-03] MEDS ORDERED: SODIUM CHLORIDE NASAL SPRAY 44 ML BOTTLE NS PRN (10:02)
--- NOTE | 2019-06-03 10:12 | CON.PULM ---
Consult Consult Specialty:: PULM/CCM Referred by:: Hospitalist Reason for Consultation:: SOB / COPD - History of Present Illness Chief Complaint: SOB History of Present Illness: 58 M, COPD due to smoking, prior intubation at [facility] last year, unlikely true asthma, Afib (on Eliquis), CHF, benign prostatic hyperplasia, Obstructive Sleep Apnea diagnosed at [facility] on CPAP (settings not known) and follows with Dr Andrea in [place], and congestive heart failure. Admitted via the ER due to progressive shortness of breath for the past few days. He feels the change in weather has exacerbated his symptoms. No travel history or sick contacts. Recent evaluation to [facility] where he was discharged with Prednisone taper, currently taking 20mg OD. CXR: No acute process - History Source History Provided By: Patient Limitations to Obtaining History: No Limitations - Past Medical History Pulmonary: Yes: Bronchitis, COPD, Pneumonia, Previously Intubated, Sleep Apnea. No: Asthma, Cancer, O2 Dependent, Pulmonary Embolus, Pulmonary Fibrosis - Alcohol/Substance Use Hx Alcohol Use: No - Smoking History Smoking history: Current every day smoker Have you smoked in the past 12 months: Yes Aproximately how many cigarettes per day: 10 Home Medications - Allergies Allergies/Adverse Reactions: Allergies Allergy/AdvReac Type Severity Reaction Status Date / Time ibuprofen [From Motrin] AdvReac Verified 06/01/19 15:29 - Home Medications Home Medications: Ambulatory Orders Apixaban [Eliquis] 5 mg PO BID 05/31/19 Aspirin [Aspirin EC] 81 mg PO DAILY 05/31/19 Budesonide/Formeterol Fumarate [SYMBICORT 160/4.5mcg -] 1 puff IH BID 05/31/19 Carvedilol 25 mg PO DAILY 05/31/19 Furosemide 20 mg PO BID 05/31/19 Ipratropium/Albuterol Sulfate [Combivent Respimat 20-100 Mcg] 1 puff IH Q6H PRN 05/31/19 Omeprazole 40 mg PO DAILY 05/31/19 Sacubitril/Valsartan [Entresto 24 mg-26 mg Tablet] 1 tablet PO DAILY 05/31/19 Spironolactone 25 mg PO DAILY 05/31/19 Tamsulosin HCl 0.4 mg PO DAILY 05/31/19 Review of Systems - Review of Systems Constitutional: reports: Malaise. denies: Chills, Fever, Night Sweats Eyes: reports: No Symptoms HENT: reports: No Symptoms Neck: reports: No Symptoms Cardiovascular: reports: Shortness of Breath. denies: Chest Pain, Edema, Palpitations Respiratory: reports: Cough, Orthopnea, Snoring, SOB, SOB on Exertion, Wheezing. denies: Hemoptysis Gastrointestinal: reports: No Symptoms Genitourinary: reports: No Symptoms Breasts: reports: No Symptoms Reported Musculoskeletal: reports: Back Pain Integumentary: reports: No Symptoms Neurological: reports: No Symptoms Endocrine: reports: No Symptoms Hematology/Lymphatic: reports: No Symptoms Psychiatric: reports: No Symptoms Physical Exam Vital Sings: Vital Signs Temperature 97.7 F 06/03/19 06:24 Pulse Rate 61 06/03/19 06:24 Respiratory Rate 06/03/19 06:24 Blood Pressure 134/89 06/03/19 06:24 O2 Sat by Pulse Oximetry (%) 98 06/02/19 22:00 Constitutional: Yes: No Distress, Obese Eyes: Yes: Conjunctiva Clear, EOM Intact HENT: Yes: Atraumatic, Pharyngeal Erythema Neck: Yes: Supple, Trachea Midline Cardiovascular: Yes: Pulse Irregular Respiratory: Yes: Diminished, On Nasal O2, Rhonchi, SOB on Exertion, Tachypnea, Wheezes. No: Accessory Muscle Use, Rales, SOB, Stridor ...Inspection: Yes: WNL ...Clubbing: No Gastrointestinal: Yes: Normal Bowel Sounds, Soft, Abdomen, Obese Renal/: Yes: WNL Musculoskeletal: Yes: WNL Extremities: Yes: WNL Edema: No Peripheral Pulses WNL: Yes Integumentary: Yes: WNL Neurological: Yes: WNL, Alert, Oriented ...Motor Strength: WNL Psychiatric: Yes: WNL, Alert, Oriented Labs: CBC, BMP 06/01/19 07:20 06/03/19 08:38 Imaging - Results Chest X-ray: Report Reviewed, Image Reviewed Problem List - Problems (1) Acute exacerbation of chronic obstructive pulmonary disease (COPD) Code(s): J44.1 - CHRONIC OBSTRUCTIVE PULMONARY DISEASE W (ACUTE) EXACERBATION (2) Sleep apnea Code(s): G47.30 - SLEEP APNEA, UNSPECIFIED (3) BPH (benign prostatic hyperplasia) Code(s): N40.0 - BENIGN PROSTATIC HYPERPLASIA WITHOUT LOWER URINRY TRACT SYMP (4) COPD (chronic obstructive pulmonary disease) Code(s): J44.9 - CHRONIC OBSTRUCTIVE PULMONARY DISEASE, UNSPECIFIED Qualifiers: COPD type: unspecified COPD Qualified Code(s): J44.9 - Chronic obstructive pulmonary disease, unspecified (5) Afib Code(s): I48.91 - UNSPECIFIED ATRIAL FIBRILLATION (6) CHF (congestive heart failure) Code(s): I50.9 - HEART FAILURE, UNSPECIFIED Assessment/Plan Medrol BD TX standing and PRN, avoid LAMA and HERBERT (spiriva was discontinued) Noted Zithromax, doubt bacterial infection O2 as needed No smoking counseled Nasal Saline Fluticasone nasal spray Cardiac meds as ordered NIPPV support QHS and PRN Will follow Thank you Dr Herrera
[2019-06-03] MEDS: CARVEDILOL 25 MG TABLET (FP) PO SCH (10:42)
[2019-06-03] MEDS: SPIRONOLACTONE 25 MG TABLET (FP) PO SCH (10:42)
[2019-06-03] MEDS: ASPIRIN COATED 81 MG TABLET.EC PO SCH (10:42)
[2019-06-03] MEDS: TAMSULOSIN HCL 0.4 MG CAP PO SCH (10:42)
[2019-06-03] MEDS: PANTOPRAZOLE 40 MG TABLET (FP) PO SCH (10:42)
[2019-06-03] MEDS: APIXABAN 5 MG TABLET PO SCH ×2 (10:42→21:48)
[2019-06-03] MEDS: FUROSEMIDE 20 MG TABLET (FP) PO SCH ×2 (10:42→21:49)
[2019-06-03] MEDS: FLUTICASONE PROP 0.05% 16 GM NASAL SPRAY NS SCH (10:43)
[2019-06-03] MEDS: BUDESONIDE/FORMETEROL FUMARATE 160/4.5 mcg INHALER IH SCH ×3 (10:49→21:48)
[2019-06-03] MEDS: SACUBITRIL/VALSARTAN 24 MG-26 MG TABLET PO SCH (10:51)
[2019-06-03] MEDS ORDERED: PT OWN MED DRAWER 7, Y5N ONE (10:51)
[2019-06-03] MEDS: TIOTROPIUM BROMIDE 2.5 MCG (SPIRIVA) RESPIMAT INHALER IH SCH (12:32)
--- NOTE | 2019-06-03 17:43 | PN ---
Physical Exam: SUBJECTIVE: Patient seen and examined. No acute events overnight. Patient complains of mild left ankle swelling. Still complains of some SOB. Denies chest pain, abd pain, fever, chills, or other concerns. OBJECTIVE: Vital Signs Period Temp Pulse Resp BP Sys/Sibley Pulse Ox Last 24 Hr 97.7 F-98.9 F 61-96 17-20 126-147/69-90 97-98 GENERAL: The patient is awake, alert, and fully oriented, in no acute distress. HEAD: Normal with no signs of trauma. EYES: EOMI, no ptosis ENT: dry mucous membranes NECK: Trachea midline, full range of motion, supple. LUNGS: diffuse inspiratory and expiratory wheezing bilaterally, no accessory muscle use HEART: irregularly irregular ABDOMEN: Soft, nontender, nondistended, normoactive bowel sounds, no guarding, no rebound EXTREMITIES: 2+ pulses, warm, well-perfused, no edema NEUROLOGICAL: Normal speech, gait not observed. sensation intact throughout PSYCH: Normal mood, normal affect SKIN: Warm, dry, normal turgor, no rashes or lesions noted Laboratory Results - last 24 hr 06/03/19 08:38 Sodium 139 Potassium 4.4 Chloride 103 Carbon Dioxide 32 Anion Gap 4 L BUN 23.1 H Creatinine 1.0 Est GFR (CKD-EPI)AfAm 97.08 Est GFR (CKD-EPI)NonAf 83.76 Random Glucose 101 Calcium 8.5 Active Medications Generic Name Dose Route Start Last Admin Trade Name Freq PRN Reason Stop Dose Admin Acetaminophen 650 mg 05/31/19 21:03 06/03/19 08:04 Tylenol - PO 650 mg Q6H PRN Administration Fever Or Pain Albuterol Sulfate 1 amp 05/31/19 17:16 06/03/19 02:15 Ventolin 0.083% Nebulizer Soln - NEB 1 amp Q4H PRN Administration SHORT OF BREATH/WHEEZING Albuterol/Ipratropium 1 amp 06/01/19 20:00 06/03/19 11:15 Duoneb - NEB 1 amp RQID CUCA Administration Apixaban 5 mg 05/31/19 22:00 06/03/19 10:42 Eliquis - PO 5 mg BID CUCA Administration Aspirin 81 mg 06/01/19 10:00 06/03/19 10:42 Ecotrin - PO 81 mg DAILY CUCA Administration Budesonide/Formoterol Fumarate 2 puff 06/03/19 10:15 06/03/19 10:49 Symbicort 160/4.5mcg - IH Not Given BID CUCA Carvedilol 25 mg 06/01/19 10:00 06/03/19 10:42 Coreg - PO 25 mg DAILY CUCA Administration Fluticasone Propionate 2 spray 06/03/19 10:15 06/03/19 10:43 Flonase - NS 2 sprays DAILY CUCA Administration Furosemide 20 mg 05/31/19 22:00 06/03/19 10:42 Lasix - PO 20 mg BID CUCA Administration Methylprednisolone Sodium Succinate 40 mg 05/31/19 18:00 06/03/19 11:14 Solu-Medrol - IVPUSH 40 mg Q8H-IV CUCA Administration Pantoprazole Sodium 40 mg 06/01/19 10:00 06/03/19 10:42 Protonix - PO 40 mg DAILY CUCA Administration Sacubitril/Valsartan 1 tab 06/01/19 10:00 06/03/19 10:51 Entresto 24 Mg-26 Mg Tablet PO 1 tab DAILY CUCA Administration Sodium Chloride 2 spray 06/03/19 10:02 [place] - NS TID PRN NASAL CONGESTION Spironolactone 25 mg 06/01/19 10:00 06/03/19 10:42 Aldactone - PO 25 mg DAILY CUCA Administration Tamsulosin HCl 0.4 mg 06/01/19 10:00 06/03/19 10:42 Flomax - PO 0.4 mg DAILY CUCA Administration ASSESSMENT/PLAN: 58 y/o/f with PMHx of asthma, COPD (prior intubation at [facility] last year), Afib (on Eliquis), benign prostatic hyperplasia, sleep apnea, congestive heart failure, presented with complaint of shortness of breath. #COPD exacerbation - Repeat CXR without acute process seen. - MethylPrednisone 125mg IV in ED. Continue MethyPrednisone 40mg IV Q8 Hours - DuoNebs Q6h standing. Albuterol nebulizer Q4 hours PRN. - Patient recieved Magnesium Sulfate 2grams IV in ED - Azithromycin discontinued - Wean to room air as tolerated - Pre/Post ordered to assess oxygen needs - Pulm consulted - avoid LAMA and HERBERT - NIPPV support QHS and PRN #Afib - Currently rate controlled. Continue Carvedilol 25mg PO BID - Eliquis 5mg PO BID #Obstructive sleep apnea - Will continue evening CPAP #Systolic heart failure - Currently not in exacerbation - Continue Furosemide 20mg PO BID - Spironolactone 25mg PO daily - Entresto 1 tab PO daily - ECHO with EF of 55%, no significant abnormalities - CXR without evidence of pleural effusions - BNP 279 #Benign prostatic hyperplasia - Continue Tamsulosin 0.4mg PO daily #FEN - No IV fluids indicated - Monitor and replete lytes as needed - Sodium controlled diet. #Prophylaxis - Eliquis 5mg PO BID #Disposition - continue to monitor for clinical improvement Visit type - Emergency Visit Emergency Visit: Yes ED Registration Date: 05/31/19 Care time: The patient presented to the Emergency Department on the above date and was hospitalized for further evaluation of their emergent condition. - New Patient This patient is new to me today: No - Critical Care Critical Care patient: No ATTENDING PHYSICIAN STATEMENT I saw and evaluated the patient. I reviewed the resident's note and discussed the case with the resident. I agree with the resident's findings and plan as documented. SUBJECTIVE: OBJECTIVE: ASSESSMENT AND PLAN:
--- NOTE | 2019-06-03 19:23 | PN ---
Teaching Attending Note Name of Resident: Jessee Booker ATTENDING PHYSICIAN STATEMENT I saw and evaluated the patient. I reviewed the resident's note and discussed the case with the resident. I agree with the resident's findings and plan as documented. Somewhat improved, exam with continued wheezes. Pulm consulted yesterday 10 sys ROS done and neg aside from HPI -Acute on chronic respiratory failure 2/2 COPD exacerbation (Recent OP tx failure; on steroids and bronchodilators with humidified O2 PRN. Complicated by obstructive sleep apnea. Counseled regarding smoking cessation. Continue azithromycin for anti-inflammatory effect. Flu swab noted to be negative. Admission chest x-ray noted. Echo noted; check BNP. Pending pulmonology consultation) -History of uncontrolled hypertension; Coreg, Entresto will be continued. -Cocaine abuse, counseling offered. -History of atrial fibrillation, elevated CV2 score on Eliquis. Baseline NYHA I -II symptoms -History of BPH -History of CHF on Entresto (LVEF noted to be normal; FU BMP and continue home meds) -Morbid Obesity (BMI 39.9; r/o pickwickian syndrome) -JOEL on NIMV qHS
[2019-06-04] MEDS: methylPREDNISolone NA SUCC 40 MG/1 ML VIAL IVPUSH SCH ×3 (02:58→17:40)
--- NOTE | 2019-06-04 07:38 | PN ---
Physical Exam: SUBJECTIVE: Patient seen and examined. Complains that he still has SOB. Denies chest pain, abd pain, fever, chills. States that he is coughing and spitting up a lot of phlegm today. OBJECTIVE: Vital Signs Period Temp Pulse Resp BP Sys/Sibley Pulse Ox Last 24 Hr 97.6 F-98.6 F 64-87 17-18 112-147/70-94 98-98 GENERAL: The patient is awake, alert, and fully oriented, in no acute distress. HEAD: Normal with no signs of trauma. EYES: EOMI, no ptosis ENT: dry mucous membranes NECK: Trachea midline, full range of motion, supple. LUNGS: diffuse inspiratory and expiratory wheezing bilaterally, no accessory muscle use HEART: irregularly irregular ABDOMEN: Soft, nontender, nondistended, normoactive bowel sounds, no guarding, no rebound EXTREMITIES: 2+ pulses, warm, well-perfused, no edema NEUROLOGICAL: Normal speech, gait not observed. sensation intact throughout PSYCH: Normal mood, normal affect SKIN: Warm, dry, normal turgor, no rashes or lesions noted Laboratory Results - last 24 hr 06/03/19 08:38 Sodium 139 Potassium 4.4 Chloride 103 Carbon Dioxide 32 Anion Gap 4 L BUN 23.1 H Creatinine 1.0 Est GFR (CKD-EPI)AfAm 97.08 Est GFR (CKD-EPI)NonAf 83.76 Random Glucose 101 Calcium 8.5 Active Medications Generic Name Dose Route Start Last Admin Trade Name Freq PRN Reason Stop Dose Admin Acetaminophen 650 mg 05/31/19 21:03 06/03/19 20:23 Tylenol - PO 650 mg Q6H PRN Administration Fever Or Pain Albuterol Sulfate 1 amp 05/31/19 17:16 06/03/19 02:15 Ventolin 0.083% Nebulizer Soln - NEB 1 amp Q4H PRN Administration SHORT OF BREATH/WHEEZING Albuterol/Ipratropium 1 amp 06/01/19 20:00 06/03/19 21:55 Duoneb - NEB 1 amp RQID CUCA Administration Apixaban 5 mg 05/31/19 22:00 06/03/19 21:48 Eliquis - PO 5 mg BID CUCA Administration Aspirin 81 mg 06/01/19 10:00 06/03/19 10:42 Ecotrin - PO 81 mg DAILY CUCA Administration Budesonide/Formoterol Fumarate 2 puff 06/03/19 10:15 06/03/19 21:48 Symbicort 160/4.5mcg - IH Not Given BID CUCA Carvedilol 25 mg 06/01/19 10:00 06/03/19 10:42 Coreg - PO 25 mg DAILY CUCA Administration Fluticasone Propionate 2 spray 06/03/19 10:15 06/03/19 10:43 Flonase - NS 2 sprays DAILY CUCA Administration Furosemide 20 mg 05/31/19 22:00 06/03/19 21:49 Lasix - PO 20 mg BID CUCA Administration Methylprednisolone Sodium Succinate 40 mg 05/31/19 18:00 06/04/19 02:58 Solu-Medrol - IVPUSH 40 mg Q8H-IV CUCA Administration Pantoprazole Sodium 40 mg 06/01/19 10:00 06/03/19 10:42 Protonix - PO 40 mg DAILY CUCA Administration Sacubitril/Valsartan 1 tab 06/01/19 10:00 06/03/19 10:51 Entresto 24 Mg-26 Mg Tablet PO 1 tab DAILY CUCA Administration Sodium Chloride 2 spray 06/03/19 10:02 [place] Nasal [place] - NS TID PRN NASAL CONGESTION Spironolactone 25 mg 06/01/19 10:00 06/03/19 10:42 Aldactone - PO 25 mg DAILY CUCA Administration Tamsulosin HCl 0.4 mg 06/01/19 10:00 06/03/19 10:42 Flomax - PO 0.4 mg DAILY CUCA Administration ASSESSMENT/PLAN: 58 y/o/f with PMHx of asthma, COPD (prior intubation at [facility] last year), Afib (on Eliquis), benign prostatic hyperplasia, sleep apnea, congestive heart failure, presented with complaint of shortness of breath. #COPD exacerbation - Repeat CXR without acute process seen. - MethylPrednisone 125mg IV in ED. Continue MethyPrednisone 40mg IV Q8 Hours - DuoNebs Q6h standing. Albuterol nebulizer Q4 hours PRN. - Patient recieved Magnesium Sulfate 2grams IV in ED - Azithromycin discontinued - Wean to room air as tolerated - Pre/Post showed a post O2 saturation of 87% - Pulm consulted - avoid LAMA and HERBERT - NIPPV support QHS and PRN #Afib - Currently rate controlled. Continue Carvedilol 25mg PO BID - Eliquis 5mg PO BID #Obstructive sleep apnea - Will continue evening CPAP #Systolic heart failure - Currently not in exacerbation - Continue Furosemide 20mg PO BID - Spironolactone 25mg PO daily - Entresto 1 tab PO daily - ECHO with EF of 55%, no significant abnormalities - CXR without evidence of pleural effusions - BNP 279 #Benign prostatic hyperplasia - Continue Tamsulosin 0.4mg PO daily #FEN - No IV fluids indicated - Monitor and replete lytes as needed - Sodium controlled diet. #Prophylaxis - Eliquis 5mg PO BID #Disposition - continue to monitor for clinical improvement Visit type - Emergency Visit Emergency Visit: Yes ED Registration Date: 05/31/19 Care time: The patient presented to the Emergency Department on the above date and was hospitalized for further evaluation of their emergent condition. - New Patient This patient is new to me today: No - Critical Care Critical Care patient: No ATTENDING PHYSICIAN STATEMENT I saw and evaluated the patient. I reviewed the resident's note and discussed the case with the resident. I agree with the resident's findings and plan as documented. SUBJECTIVE: OBJECTIVE: ASSESSMENT AND PLAN:
[2019-06-04] MEDS: ALBUTEROL SO4 2.5/IPRATROPIUM 0.5 INH SOL 3 ML VIAL.NEB. NEB SCH ×4 (08:00→21:45)
[2019-06-04] MEDS ORDERED: PT OWN MED DRAWER 7, Y5N ONE (09:29)
[2019-06-04] MEDS: APIXABAN 5 MG TABLET PO SCH ×2 (09:34→23:30)
[2019-06-04] MEDS: FUROSEMIDE 20 MG TABLET (FP) PO SCH ×2 (09:35→23:30)
[2019-06-04] MEDS: CARVEDILOL 25 MG TABLET (FP) PO SCH (09:35)
[2019-06-04] MEDS: PANTOPRAZOLE 40 MG TABLET (FP) PO SCH (09:35)
[2019-06-04] MEDS: ASPIRIN COATED 81 MG TABLET.EC PO SCH (09:35)
[2019-06-04] MEDS: TAMSULOSIN HCL 0.4 MG CAP PO SCH (09:35)
[2019-06-04] MEDS: SPIRONOLACTONE 25 MG TABLET (FP) PO SCH (09:35)
[2019-06-04] MEDS: BUDESONIDE/FORMETEROL FUMARATE 160/4.5 mcg INHALER IH SCH ×2 (09:38→23:30)
[2019-06-04] MEDS: FLUTICASONE PROP 0.05% 16 GM NASAL SPRAY NS SCH (09:42)
[2019-06-04] MEDS: SACUBITRIL/VALSARTAN 24 MG-26 MG TABLET PO SCH (09:42)
[2019-06-04 10:00] LABS: BLOOD UREA NITROGEN 21.1 mg/dL (7-18); CALCIUM 8.2 mg/dL (8.5-10.1); CREATININE 0.9 mg/dL (0.55-1.3); MAGNESIUM 2.8 mg/dL (1.8-2.4); POTASSIUM 4.5 mmol/L (3.5-5.1)
--- NOTE | 2019-06-04 14:08 | PN ---
Progress Note (short form) - Note Progress Note: PULMONARY VSS/AFEBRILE Constitutional: Yes: No Distress, Obese Eyes: Yes: Conjunctiva Clear, EOM Intact HENT: Yes: Atraumatic, Pharyngeal Erythema Neck: Yes: Supple, Trachea Midline Cardiovascular: Yes: Pulse Irregular Respiratory: Yes: Diminished, On Nasal O2, Rhonchi, SOB on Exertion, Tachypnea, Wheezes. No: Accessory Muscle Use, Rales, SOB, Stridor ...Inspection: Yes: WNL ...Clubbing: No Gastrointestinal: Yes: Normal Bowel Sounds, Soft, Abdomen, Obese Renal/: Yes: WNL Musculoskeletal: Yes: WNL Extremities: Yes: WNL Edema: No Peripheral Pulses WNL: Yes Integumentary: Yes: WNL Neurological: Yes: WNL, Alert, Oriented ...Motor Strength: WNL Psychiatric: Yes: WNL, Alert, Oriented LABS/MEDS/NOTES/IMAGES REVIEWED - Results Chest X-ray: Report Reviewed, Image Reviewed Problem List - Problems (1) Acute exacerbation of chronic obstructive pulmonary disease (COPD) Code(s): J44.1 - CHRONIC OBSTRUCTIVE PULMONARY DISEASE W (ACUTE) EXACERBATION (2) Sleep apnea Code(s): G47.30 - SLEEP APNEA, UNSPECIFIED (3) BPH (benign prostatic hyperplasia) Code(s): N40.0 - BENIGN PROSTATIC HYPERPLASIA WITHOUT LOWER URINRY TRACT SYMP (4) COPD (chronic obstructive pulmonary disease) Code(s): J44.9 - CHRONIC OBSTRUCTIVE PULMONARY DISEASE, UNSPECIFIED Qualifiers: COPD type: unspecified COPD Qualified Code(s): J44.9 - Chronic obstructive pulmonary disease, unspecified (5) Afib Code(s): I48.91 - UNSPECIFIED ATRIAL FIBRILLATION (6) CHF (congestive heart failure) Code(s): I50.9 - HEART FAILURE, UNSPECIFIED Assessment/Plan Medrol BD TX standing and PRN, avoid LAMA and HERBERT (spiriva was discontinued) Noted Zithromax, doubt bacterial infection O2 as needed No smoking counseled Nasal Saline Fluticasone nasal spray Cardiac meds as ordered NIPPV support QHS and PRN Will follow Pao COYLE MD
[2019-06-05] MEDS: methylPREDNISolone NA SUCC 40 MG/1 ML VIAL IVPUSH SCH ×3 (02:28→17:33)
--- NOTE | 2019-06-05 07:10 | PN ---
Teaching Attending Note Name of Resident: Jessee Booker ATTENDING PHYSICIAN STATEMENT I saw and evaluated the patient. I reviewed the resident's note and discussed the case with the resident. I agree with the resident's findings and plan as documented. Unable to DC as low pre and post and not home O2 requirements 10 sys ROS done and negative aside from HPI VS labs imaging reviewed NAD AAO resting in bed +wheezes but somewhat improved, w/ sym exp NT ND +BS Obese CN2-12 wnl, no fnd Normal mood, appropriate behavior Pre and post per respiratory Echo reviewed Specialist recs reviewed ASSESSMENT AND PLAN: Overall will continue abx, BDs, and monitior on the medicine service for improvement. Hopefully DC 24-48 hours. Will need home inhaler optimization, etc. Problems include: -Acute on chronic respiratory failure 2/2 COPD exacerbation -History of uncontrolled hypertension; Coreg, Entresto will be continued. -Cocaine abuse, counseling offered. -History of atrial fibrillation, elevated CV2 score on Eliquis. Baseline NYHA I -II symptoms -History of BPH -History of CHF on Entresto (LVEF noted to be normal; FU BMP and continue home meds) -Morbid Obesity (BMI 39.9; r/o pickwickian syndrome) -JOEL on NIMV qHS
[2019-06-05] MEDS: ALBUTEROL SO4 2.5/IPRATROPIUM 0.5 INH SOL 3 ML VIAL.NEB. NEB SCH ×4 (08:00→20:35)
[2019-06-05] MEDS: SPIRONOLACTONE 25 MG TABLET (FP) PO SCH (09:53)
[2019-06-05] MEDS: CARVEDILOL 25 MG TABLET (FP) PO SCH (09:53)
[2019-06-05] MEDS: TAMSULOSIN HCL 0.4 MG CAP PO SCH (09:53)
[2019-06-05] MEDS: PANTOPRAZOLE 40 MG TABLET (FP) PO SCH (09:54)
[2019-06-05] MEDS: APIXABAN 5 MG TABLET PO SCH ×2 (09:54→21:19)
[2019-06-05] MEDS: ASPIRIN COATED 81 MG TABLET.EC PO SCH (09:54)
[2019-06-05] MEDS: SACUBITRIL/VALSARTAN 24 MG-26 MG TABLET PO SCH (09:54)
[2019-06-05] MEDS: FUROSEMIDE 20 MG TABLET (FP) PO SCH ×2 (09:54→21:19)
[2019-06-05] MEDS: BUDESONIDE/FORMETEROL FUMARATE 160/4.5 mcg INHALER IH SCH ×2 (09:56→21:06)
[2019-06-05] MEDS: FLUTICASONE PROP 0.05% 16 GM NASAL SPRAY NS SCH (09:56)
--- NOTE | 2019-06-05 11:02 | PN ---
Physical Exam: SUBJECTIVE: Patient seen and examined. He reports some improvement in his breathing. OBJECTIVE: Vital Signs Period Temp Pulse Resp BP Sys/Sibley Pulse Ox Last 24 Hr 97.5 F-98.9 F 67-89 18-20 106-146/63-86 95-97 GENERAL: The patient is awake, alert, and fully oriented, in no acute distress. LUNGS: Breath sounds equal, diffuse wheezes, no crackles, no accessory muscle use. HEART: Regular rate and rhythm, S1, S2 without murmur, rub or gallop. ABDOMEN: Obese, soft, nontender, nondistended, normoactive bowel sounds, no guarding, no rebound, no hepatosplenomegaly, no masses. EXTREMITIES: 2+ pulses, warm, well-perfused, no edema. Active Medications Generic Name Dose Route Start Last Admin Trade Name Freq PRN Reason Stop Dose Admin Acetaminophen 650 mg 05/31/19 21:03 06/03/19 20:23 Tylenol - PO 650 mg Q6H PRN Administration Fever Or Pain Albuterol Sulfate 1 amp 05/31/19 17:16 06/03/19 02:15 Ventolin 0.083% Nebulizer Soln - NEB 1 amp Q4H PRN Administration SHORT OF BREATH/WHEEZING Albuterol/Ipratropium 1 amp 06/01/19 20:00 06/05/19 08:00 Duoneb - NEB 1 amp RQID CUCA Administration Apixaban 5 mg 05/31/19 22:00 06/05/19 09:54 Eliquis - PO 5 mg BID CUCA Administration Aspirin 81 mg 06/01/19 10:00 06/05/19 09:54 Ecotrin - PO 81 mg DAILY CUCA Administration Budesonide/Formoterol Fumarate 2 puff 06/03/19 10:15 06/05/19 09:56 Symbicort 160/4.5mcg - IH Not Given BID CUCA Carvedilol 25 mg 06/01/19 10:00 06/05/19 09:53 Coreg - PO 25 mg DAILY CUCA Administration Fluticasone Propionate 2 spray 06/03/19 10:15 06/05/19 09:56 Flonase - NS 2 sprays DAILY CUCA Administration Furosemide 20 mg 05/31/19 22:00 06/05/19 09:54 Lasix - PO 20 mg BID CUCA Administration Methylprednisolone Sodium Succinate 40 mg 05/31/19 18:00 06/05/19 09:54 Solu-Medrol - IVPUSH 40 mg Q8H-IV CUCA Administration Pantoprazole Sodium 40 mg 06/01/19 10:00 06/05/19 09:54 Protonix - PO 40 mg DAILY CUCA Administration Sacubitril/Valsartan 1 tab 06/01/19 10:00 06/05/19 09:54 Entresto 24 Mg-26 Mg Tablet PO 1 tab DAILY CUCA Administration Sodium Chloride 2 spray 06/03/19 10:02 [place] Nasal [place] - NS TID PRN NASAL CONGESTION Spironolactone 25 mg 06/01/19 10:00 06/05/19 09:53 Aldactone - PO 25 mg DAILY CUCA Administration Tamsulosin HCl 0.4 mg 06/01/19 10:00 06/05/19 09:53 Flomax - PO 0.4 mg DAILY CUAC Administration ASSESSMENT/PLAN: This is a 58 year old man with a history of asthma, COPD, atrial fib, chronic systolic heart failure, BPH, JOEL who presented with complaint of shortness of breath. 1. Acute exacerbation of COPD - Slow improvement - Continue SoluMedrol, Symbicort, DuoNeb - Oxygen to maintain saturation >90% - BiPAP at night and as needed 2. History of atrial fib - Currently in sinus rhythm - Continue Coreg, Eliquis 3. Chronic systolic heart failue - Stable - Continue Entresto, Coreg, Lasix, Aldactone 4. Obstructive sleep apnea - Continue BiPAP at night 5. Morbid obesity with BMI 40.0 6. BPH - Continue Flomax Visit type - Emergency Visit Emergency Visit: Yes ED Registration Date: 05/31/19 Care time: The patient presented to the Emergency Department on the above date and was hospitalized for further evaluation of their emergent condition. - New Patient This patient is new to me today: Yes Date on this admission: 06/05/19 - Critical Care Critical Care patient: No - Discharge Referral Referred to [facility] No
--- NOTE | 2019-06-05 12:34 | PN ---
Progress Note (short form) - Note Progress Note: PULMONARY VSS/AFEBRILE SUBJECTIVE IMPROVEMENT Constitutional: Yes: No Distress, Obese Eyes: Yes: Conjunctiva Clear, EOM Intact HENT: Yes: Atraumatic, Pharyngeal Erythema Neck: Yes: Supple, Trachea Midline Cardiovascular: Yes: Pulse Irregular Respiratory: Yes: Diminished, On Nasal O2, Rhonchi, SOB on Exertion, Tachypnea, Wheezes. No: Accessory Muscle Use, Rales, SOB, Stridor ...Inspection: Yes: WNL ...Clubbing: No Gastrointestinal: Yes: Normal Bowel Sounds, Soft, Abdomen, Obese Renal/: Yes: WNL Musculoskeletal: Yes: WNL Extremities: Yes: WNL Edema: No Peripheral Pulses WNL: Yes Integumentary: Yes: WNL Neurological: Yes: WNL, Alert, Oriented ...Motor Strength: WNL Psychiatric: Yes: WNL, Alert, Oriented LABS/MEDS/NOTES/IMAGES REVIEWED - Results Chest X-ray: Report Reviewed, Image Reviewed Problem List - Problems (1) Acute exacerbation of chronic obstructive pulmonary disease (COPD) Code(s): J44.1 - CHRONIC OBSTRUCTIVE PULMONARY DISEASE W (ACUTE) EXACERBATION (2) Sleep apnea Code(s): G47.30 - SLEEP APNEA, UNSPECIFIED (3) BPH (benign prostatic hyperplasia) Code(s): N40.0 - BENIGN PROSTATIC HYPERPLASIA WITHOUT LOWER URINRY TRACT SYMP (4) COPD (chronic obstructive pulmonary disease) Code(s): J44.9 - CHRONIC OBSTRUCTIVE PULMONARY DISEASE, UNSPECIFIED Qualifiers: COPD type: unspecified COPD Qualified Code(s): J44.9 - Chronic obstructive pulmonary disease, unspecified (5) Afib Code(s): I48.91 - UNSPECIFIED ATRIAL FIBRILLATION (6) CHF (congestive heart failure) Code(s): I50.9 - HEART FAILURE, UNSPECIFIED Assessment/Plan Medrol continue same for now BD TX standing and PRN, Noted Zithromax, doubt bacterial infection O2 as needed No smoking counseled Nasal Saline Fluticasone nasal spray Cardiac meds as ordered NIPPV support QHS and PRN Will follow Discharge planning for tomorrow Pao COYLE MD
[2019-06-06] MEDS: methylPREDNISolone NA SUCC 40 MG/1 ML VIAL IVPUSH SCH ×2 (03:42→10:30)
[2019-06-06] MEDS: ALBUTEROL SO4 2.5/IPRATROPIUM 0.5 INH SOL 3 ML VIAL.NEB. NEB SCH ×4 (07:40→20:36)
[2019-06-06 08:01] LABS: HEMATOCRIT 43.5 % (35.4-49); HEMOGLOBIN 13.9 GM/dL (11.7-16.9); MCH 25.6 pg (25.7-33.7); MEAN PLT VOLUME 8.5 fl (7.5-11.1); PLATELET COUNT 243 K/MM3 (134-434); RBC 5.44 M/mm3 (4.00-5.60); RDW 16.8 % (11.9-15.9); WHITE BLOOD COUNT 7.7 K/mm3 (4.0-10.0)
[2019-06-06 08:19] LABS: BLOOD UREA NITROGEN 29.3 mg/dL (7-18); CALCIUM 8.3 mg/dL (8.5-10.1); CREATININE 1.1 mg/dL (0.55-1.3); POTASSIUM 4.9 mmol/L (3.5-5.1)
--- NOTE | 2019-06-06 08:28 | PN ---
Teaching Attending Note Name of Resident: Colby Arguello ATTENDING PHYSICIAN STATEMENT I saw and evaluated the patient. I reviewed the resident's note and discussed the case with the resident. I agree with the resident's findings and plan as documented. Seen and examined; please see resident note for further historical information. I personally verified all escalante historical information and exam findings. Personally interpreted all imaging and diagnostics and reviewed appropriate consults. I reviewed all labs and vital signs as per resident note and EMR as documented. I agree with the above assessment and plan unless supplemented by myself in the following. Patient shortness of breath is improved, he is ambulating the hallways, pulmonary continues to follow. He remains stable on his Coreg and Eliquis for his A. fib 10 item review of systems completed and is negative aside from history of present illness VS, labs, imaging reviewed NAD, AAO, resting comfortably in bed. RRR s1/2 no mgr Normal muscle tone, moves all 5 extremities with normal apparent strength Neck is supple, trachea midline, no suzanne LN Lungs improved with sym expansion NT ND +BS no suzanne organomegaly CN2-12 wnl; no FND NC AT EOMI PERRLA Normal mood, appropriate behavior, euthymic affect No skin breakdown or rashes noted Assessment and plan: Patient presents with acute on chronic respiratory failure secondary to COPD exacerbation, pulmonary following. His only barrier to discharge at this point is weaning from IV steroids and passing a pre-and post. Problems include: Acute on chronic respiratory failure, improved COPD exacerbation, on every 8 hour IV steroids and bronchodilators as per pulmonary medicine. Keep saturations greater than 90% and continues on noninvasive mechanical ventilation at night secondary to his underlying obstructive sleep apnea Obstructive sleep apnea History of atrial fibrillation on Coreg and Eliquis with no issues continue Chronic systolic heart failure, left ventricular ejection fraction noted on recent echo to be improved from prior studies. Continues on Entresto, Coreg, Lasix, Aldactone. Continue to monitor electrolytes and fluid status daily. Morbid obesity with a BMI of 40.7. Counseled prior to discharge BPH on Flomax, continue. No issues with urinary retention noted. On the June [address] Espinosa states that we will be discussing discharge planning today, will elucidate with their service. Appreciate all subspecialty input.
--- NOTE | 2019-06-06 09:19 | PN ---
Physical Exam: SUBJECTIVE: Patient seen and examined at the bedside. Stated that his breathing was improved but continued to have wheezes and issues with his BiPAP machine overnight. Endorsed a mild productive cough. He denied any cp, abd pain, n/v/c/d , headaches, dizziness, lightheadedness, fever, chills. OBJECTIVE: Vital Signs Period Temp Pulse Resp BP Sys/Sibley Pulse Ox Last 24 Hr 97.3 F-98.9 F 67-89 18-20 114-139/63-89 95 GENERAL: The patient is awake, alert, and fully oriented, in no acute distress. HEAD: Normal with no signs of trauma. EYES: PERRL, extraocular movements intact, some scleral icterus. ENT: Oropharynx clear without exudates, moist mucous membranes. NECK: Trachea midline, full range of motion. LUNGS: Diffuse expiratory wheezes, decreased breath sounds, coarse breath sounds at bases. HEART: Normal rate and irregular rhythm, S1, S2 without murmur, rub. ABDOMEN: Soft, nontender, nondistended, normoactive bowel sounds, no guarding, no rebound, no masses. EXTREMITIES: 2+ pulses, warm, well-perfused, no edema. NEUROLOGICAL: Cranial nerves II through XII grossly intact. 5/5 muscle strength bilaterally upper and lower extremities. PSYCH: Labile mood, at times pleasant and at other times hostile. SKIN: Warm, dry, normal turgor, no rashes or lesions noted. Laboratory Results - last 24 hr 06/06/19 06/06/19 06:45 06:45 WBC 7.7 RBC 5.44 Hgb 13.9 Hct 43.5 MCV 80.0 MCH 25.6 L MCHC 32.0 RDW 16.8 H Plt Count 243 MPV 8.5 Sodium 140 Potassium 4.9 Chloride 105 Carbon Dioxide 30 Anion Gap 5 L BUN 29.3 H Creatinine 1.1 Est GFR (CKD-EPI)AfAm 86.52 Est GFR (CKD-EPI)NonAf 74.65 Random Glucose 128 H Calcium 8.3 L Active Medications Generic Name Dose Route Start Last Admin Trade Name Freq PRN Reason Stop Dose Admin Acetaminophen 650 mg 05/31/19 21:03 06/03/19 20:23 Tylenol - PO 650 mg Q6H PRN Administration Fever Or Pain Albuterol/Ipratropium 1 amp 06/01/19 20:00 06/06/19 07:40 Duoneb - NEB 1 amp RQID CUCA Administration Apixaban 5 mg 05/31/19 22:00 06/05/19 21:19 Eliquis - PO 5 mg BID CUCA Administration Aspirin 81 mg 06/01/19 10:00 06/05/19 09:54 Ecotrin - PO 81 mg DAILY CUCA Administration Budesonide/Formoterol Fumarate 2 puff 06/03/19 10:15 06/05/19 21:06 Symbicort 160/4.5mcg - IH Not Given BID CUCA Carvedilol 25 mg 06/01/19 10:00 06/05/19 09:53 Coreg - PO 25 mg DAILY CUCA Administration Fluticasone Propionate 2 spray 06/03/19 10:15 06/05/19 09:56 Flonase - NS 2 sprays DAILY CUCA Administration Furosemide 20 mg 05/31/19 22:00 06/05/19 21:19 Lasix - PO 20 mg BID CUCA Administration Methylprednisolone Sodium Succinate 40 mg 05/31/19 18:00 06/06/19 03:42 Solu-Medrol - IVPUSH 40 mg Q8H-IV CUCA Administration Pantoprazole Sodium 40 mg 06/01/19 10:00 06/05/19 09:54 Protonix - PO 40 mg DAILY CUCA Administration Sacubitril/Valsartan 1 tab 06/01/19 10:00 06/05/19 09:54 Entresto 24 Mg-26 Mg Tablet PO 1 tab DAILY CUCA Administration Sodium Chloride 2 spray 06/03/19 10:02 [place] Nasal [place] - NS TID PRN NASAL CONGESTION Spironolactone 25 mg 06/01/19 10:00 06/05/19 09:53 Aldactone - PO 25 mg DAILY CUCA Administration Tamsulosin HCl 0.4 mg 06/01/19 10:00 06/05/19 09:53 Flomax - PO 0.4 mg DAILY CUCA Administration ASSESSMENT/PLAN: Tacho Cordon is a 58 year old male with a past medical history of asthma, COPD ( prior intubation at [facility] last year), Afib (on Eliquis), benign prostatic hyperplasia, sleep apnea, congestive heart failure, presented with complaint of shortness of breath. COPD exacerbation - today repeat CXR with no acute infiltrate but noting density by the 1st left rib - chest CT noting bulky left costochondral joint (excessive calcification/ ossification), no acute pathology, mildly enlarged heart, noted chronic lung disease - switched to prednisone 40mg today, will continue and discharge on a long taper - DuoNebs Q6h standing - Azithromycin discontinued - Wean to room air as tolerated - Pre/Post showed a post O2 saturation of 87%, will repeat pre/post prior to discharge - will require home O2, has been set up - Pulm consulted, recs appreciated - avoid LAMA and HERBERT - NIPPV support QHS and PRN - family member spoken to and advised of the plan, requesting a mobile pet groomer through [place] instead of current pulm Afib - Currently rate controlled. Continue Carvedilol 25mg PO BID - Eliquis 5mg PO BID Obstructive sleep apnea - Will continue evening CPAP Systolic heart failure - Currently not in exacerbation - Continue Furosemide 20mg PO BID - Spironolactone 25mg PO daily - Entresto 1 tab PO daily - ECHO with EF of 55%, no significant abnormalities - CXR without evidence of pleural effusions Benign prostatic hyperplasia - Continue Tamsulosin 0.4mg PO daily DVT Prophylaxis - Eliquis 5mg PO BID FEN - No IV fluids indicated - continue to monitor electrolytes and replete as needed - Sodium controlled diet Disposition - continue to monitor on med-surg - can likely d/c tomorrow on oral prednisone Visit type - Emergency Visit Emergency Visit: Yes ED Registration Date: 05/31/19 Care time: The patient presented to the Emergency Department on the above date and was hospitalized for further evaluation of their emergent condition. - New Patient This patient is new to me today: Yes Date on this admission: 06/06/19 - Critical Care Critical Care patient: No
[2019-06-06] MEDS: SACUBITRIL/VALSARTAN 24 MG-26 MG TABLET PO SCH (10:30)
[2019-06-06] MEDS: CARVEDILOL 25 MG TABLET (FP) PO SCH (10:30)
[2019-06-06] MEDS: SPIRONOLACTONE 25 MG TABLET (FP) PO SCH (10:30)
[2019-06-06] MEDS: FUROSEMIDE 20 MG TABLET (FP) PO SCH ×2 (10:30→21:05)
[2019-06-06] MEDS: PANTOPRAZOLE 40 MG TABLET (FP) PO SCH (10:30)
[2019-06-06] MEDS: TAMSULOSIN HCL 0.4 MG CAP PO SCH (10:30)
[2019-06-06] MEDS: APIXABAN 5 MG TABLET PO SCH ×2 (10:30→21:05)
[2019-06-06] MEDS: BUDESONIDE/FORMETEROL FUMARATE 160/4.5 mcg INHALER IH SCH ×2 (10:31→21:05)
[2019-06-06] MEDS: ASPIRIN COATED 81 MG TABLET.EC PO SCH (10:31)
[2019-06-06] MEDS: FLUTICASONE PROP 0.05% 16 GM NASAL SPRAY NS SCH (10:32)
--- NOTE | 2019-06-06 12:07 | PN ---
Progress Note (short form) - Note Progress Note: PULMONARY VSS/AFEBRILE SUBJECTIVE IMPROVEMENT Constitutional: Yes: No Distress, Obese Eyes: Yes: Conjunctiva Clear, EOM Intact HENT: Yes: Atraumatic, Pharyngeal Erythema Neck: Yes: Supple, Trachea Midline Cardiovascular: Yes: Pulse Irregular Respiratory: Yes: Diminished, On Nasal O2, Rhonchi, SOB on Exertion, Tachypnea, Wheezes. No: Accessory Muscle Use, Rales, SOB, Stridor ...Inspection: Yes: WNL ...Clubbing: No Gastrointestinal: Yes: Normal Bowel Sounds, Soft, Abdomen, Obese Renal/: Yes: WNL Musculoskeletal: Yes: WNL Extremities: Yes: WNL Edema: No Peripheral Pulses WNL: Yes Integumentary: Yes: WNL Neurological: Yes: WNL, Alert, Oriented ...Motor Strength: WNL Psychiatric: Yes: WNL, Alert, Oriented LABS/MEDS/NOTES/IMAGES REVIEWED - Results Chest X-ray: Report Reviewed, Image Reviewed Problem List - Problems (1) Acute exacerbation of chronic obstructive pulmonary disease (COPD) Code(s): J44.1 - CHRONIC OBSTRUCTIVE PULMONARY DISEASE W (ACUTE) EXACERBATION (2) Sleep apnea Code(s): G47.30 - SLEEP APNEA, UNSPECIFIED (3) BPH (benign prostatic hyperplasia) Code(s): N40.0 - BENIGN PROSTATIC HYPERPLASIA WITHOUT LOWER URINRY TRACT SYMP (4) COPD (chronic obstructive pulmonary disease) Code(s): J44.9 - CHRONIC OBSTRUCTIVE PULMONARY DISEASE, UNSPECIFIED Qualifiers: COPD type: unspecified COPD Qualified Code(s): J44.9 - Chronic obstructive pulmonary disease, unspecified (5) Afib Code(s): I48.91 - UNSPECIFIED ATRIAL FIBRILLATION (6) CHF (congestive heart failure) Code(s): I50.9 - HEART FAILURE, UNSPECIFIED Assessment/Plan Medrol change to prednisone BD TX standing and PRN, Noted Zithromax, doubt bacterial infection O2 as needed No smoking counseled Nasal Saline Fluticasone nasal spray Cardiac meds as ordered NIPPV support QHS and PRN Will follow Discharge planning for tomorrow Pao COYLE MD
[2019-06-06] MEDS: predniSONE 20 MG TABLET (UD) PO SCH (15:43)
[2019-06-07] MEDS ORDERED: ALBUTEROL SO4 0.5 % INH SOLN 2.5 MG/0.5 ML VIAL.NEB. NEB ONE (04:28)
[2019-06-07] MEDS: ALBUTEROL SO4 2.5/IPRATROPIUM 0.5 INH SOL 3 ML VIAL.NEB. NEB SCH ×4 (08:43→20:10)
[2019-06-07] MEDS ORDERED: PT OWN MED DRAWER 7, Y5N ONE ×2 (09:41→22:28)
[2019-06-07] MEDS: TAMSULOSIN HCL 0.4 MG CAP PO SCH (09:53)
[2019-06-07] MEDS: predniSONE 20 MG TABLET (UD) PO SCH (09:53)
[2019-06-07] MEDS: FUROSEMIDE 20 MG TABLET (FP) PO SCH ×2 (09:53→22:37)
[2019-06-07] MEDS: APIXABAN 5 MG TABLET PO SCH ×2 (09:54→22:37)
[2019-06-07] MEDS: SPIRONOLACTONE 25 MG TABLET (FP) PO SCH (09:54)
[2019-06-07] MEDS: PANTOPRAZOLE 40 MG TABLET (FP) PO SCH (09:54)
[2019-06-07] MEDS: SACUBITRIL/VALSARTAN 24 MG-26 MG TABLET PO SCH (09:54)
[2019-06-07] MEDS: CARVEDILOL 25 MG TABLET (FP) PO SCH (09:54)
[2019-06-07] MEDS: BUDESONIDE/FORMETEROL FUMARATE 160/4.5 mcg INHALER IH SCH ×2 (09:54→22:36)
[2019-06-07] MEDS: ASPIRIN COATED 81 MG TABLET.EC PO SCH (09:54)
[2019-06-07] MEDS: FLUTICASONE PROP 0.05% 16 GM NASAL SPRAY NS SCH (09:55)
--- NOTE | 2019-06-07 11:34 | PN ---
Progress Note (short form) - Note Progress Note: PULMONARY Still some dypsnea on exertion but improving. Less cough and wheezing. Has been ambulating. Vital Signs Period Temp Pulse Resp BP Sys/Sibley Pulse Ox Last 24 Hr 97.7 F-98.7 F 65-91 18-20 116-147/63-92 94-97 Gen: NAD at rest Heart: RRR Lung: no wheezes appreciated Abd: soft, nontender Ext: no edema CBC, BMP 06/06/19 06:45 06/06/19 06:45 Active Medications Acetaminophen (Tylenol -) 650 mg PO Q6H PRN PRN Reason: Fever Or Pain Last Admin: 06/03/19 20:23 Dose: 650 mg Albuterol/Ipratropium (Duoneb -) 1 amp NEB RQID [facility] Last Admin: 06/07/19 08:43 Dose: 1 amp Apixaban (Eliquis -) 5 mg PO BID [facility] Last Admin: 06/07/19 09:54 Dose: 5 mg Aspirin (Ecotrin -) 81 mg PO DAILY [facility] Last Admin: 06/07/19 09:54 Dose: 81 mg Budesonide/Formoterol Fumarate (Symbicort 160/4.5mcg -) 2 puff IH BID [facility] Last Admin: 06/07/19 09:54 Dose: Not Given Carvedilol (Coreg -) 25 mg PO DAILY [facility] Last Admin: 06/07/19 09:54 Dose: 25 mg Fluticasone Propionate (Flonase -) 2 spray NS DAILY [facility] Last Admin: 06/07/19 09:55 Dose: 2 sprays Furosemide (Lasix -) 20 mg PO BID [facility] Last Admin: 06/07/19 09:53 Dose: 20 mg Pantoprazole Sodium (Protonix -) 40 mg PO DAILY [facility] Last Admin: 06/07/19 09:54 Dose: 40 mg Prednisone (Deltasone -) 40 mg PO DAILY [facility] Last Admin: 06/07/19 09:53 Dose: 40 mg Sacubitril/Valsartan (Entresto 24 Mg-26 Mg Tablet) 1 tab PO DAILY [facility] Last Admin: 06/07/19 09:54 Dose: 1 tab Sodium Chloride ([place] Nasal [place] -) 2 spray NS TID PRN PRN Reason: NASAL CONGESTION Spironolactone (Aldactone -) 25 mg PO DAILY [facility] Last Admin: 06/07/19 09:54 Dose: 25 mg Tamsulosin HCl (Flomax -) 0.4 mg PO DAILY [facility] Last Admin: 06/07/19 09:53 Dose: 0.4 mg A/P Acute COPD Exacerbation Obstructive Sleep Apnea LV Systolic Dysfunction Atrial Fibrillation BPH - prednisone taper - inhaled bronchodilators - O2 to keep SpO2 >90% - rate controlled - continue anticoagulation - outpt PFTs
--- NOTE | 2019-06-07 15:07 | PN ---
Teaching Attending Note ATTENDING PHYSICIAN STATEMENT I saw and evaluated the patient. I reviewed the resident's note and discussed the case with the resident. I agree with the resident's findings and plan as documented. Seen and examined; please see resident note for further historical information. I personally verified all escalante historical information and exam findings. Personally interpreted all imaging and diagnostics and reviewed appropriate consults. I reviewed all labs and vital signs as per resident note and EMR as documented. I agree with the above assessment and plan unless supplemented by myself in the following. He states he feels well and is anticipating discharge home. Verified oxygen was delivered. Cleared with pulmonary. Paperwork was confirmed and sent yesterday. He is in good spirits. Follow-ups were discussed. He is benefited maximally from this hospitalization would not benefit from any further inpatient days in terms of his presenting symptoms or clinical stability. 10 item review of systems completed and is negative aside from as discussed in the subjective data in my own/the resident documentation. VS, labs, imaging reviewed NAD, AAO, resting comfortably in bed. RRR s1/2 no mgr Normal muscle tone, moves all 5 extremities with normal apparent strength Neck is supple, trachea midline, no suzanne LN Lungs with improved aeration and minimal wheezes with sym expansion NT ND +BS no suzanne organomegaly CN2-12 wnl; no FND NC AT EOMI PERRLA Normal mood, appropriate behavior, euthymic affect No skin breakdown or rashes noted Hospital Course: Patient presents with acute on chronic respiratory failure secondary to COPD exacerbation, pulmonary following. His only barrier to discharge at this point is weaning from IV steroids and passing a pre-and post. Patient presented with acute on chronic respiratory failure secondary to COPD and was seen by pulmonary medicine, he was placed on IV steroids and inhaled bronchodilators and was weaned from IV to p.o. and will complete a prednisone taper. He failed outpatient prednisone tapers necessitating the degree of intensive intervention that was received during this inpatient hospitalization. Furthermore his underlying JOEL and likely pickwickian syndrome complicates his chronic respiratory issues, he will continue to require noninvasive mechanical ventilation nightly and a formal sleep eval as an outpatient. His morbid obesity of 40.7 was addressed with continued counseling and he will be referred to primary care for potential outpatient dietary follow-up. He had an echocardiogram performed which revealed a normal LVEF that has improved from prior studies. He had a history of severe CHF and required use of Entresto, Coreg, Lasix, Aldactone longstanding as an outpatient that was continued as the time of discharge. His exam is improved. All of his questions were answered Imaging studies and diagnostics from this hospitalization agreed with as per the resident note Medication list as per resident note I agree with the following follow-up appointments, dietary and activity changes , etc.
--- NOTE | 2019-06-07 17:24 | DS ---
Physical Exam: SUBJECTIVE: Patient seen and examined. No acute events overnight. Patient states that he is breathing better. Complains of mild chest pain after coughing. Denies SOB, abd pain, fever, chills. OBJECTIVE: Vital Signs Period Temp Pulse Resp BP Sys/Sibley Pulse Ox Last 24 Hr 97.7 F-98.7 F 65-91 18-20 116-147/63-92 94-97 PHYSICAL EXAM GENERAL: The patient is awake, alert, and fully oriented, in no acute distress. HEAD: Normal with no signs of trauma. EYES: EOMI, PERRL, no acute events overnight ENT: Oropharynx clear without exudates, moist mucous membranes. NECK: Trachea midline, supple LUNGS: Diffuse expiratory wheezes, decreased breath sounds. no accessory muscle use HEART: Normal rate and irregular rhythm, S1, S2 without murmur, rub. ABDOMEN: Soft, nontender, nondistended, normoactive bowel sounds, no guarding, no rebound, no masses. EXTREMITIES: 2+ pulses, warm, well-perfused, no edema. NEUROLOGICAL: Cranial nerves II through XII grossly intact. 5/5 muscle strength bilaterally upper and lower extremities. Normal speech, gait not observed PSYCH: normal mood and affect SKIN: Warm, dry, normal turgor, no rashes or lesions noted. LABS HOSPITAL COURSE: Date of Admission:05/31/19 Date of Discharge: 06/07/19 58 year old male with a past medical history of asthma, COPD (prior intubation at [facility] last year), Afib (on Eliquis), benign prostatic hyperplasia, sleep apnea, congestive heart failure, presented with complaint of shortness of breath. Diagnosed with COPD exacerbation. Patient was started on MethyPrednisone 40mg IV Q8 hours and was given a one time 125mg of Methylprednison on admission in the ER. Treated with standing duonebs and albuterol PRN. Given 4 days of Azithromycin for prophylaxis. Patient was seen by pulmonology and who agreed with management. Initially patient failed a pre, post with a post O2 saturation of 87% but repeat pre, post today showed improvement with a post O2 saturation of 94% so patient will not need home O2 at this time. Patient's home medications were continued appropriately. BNP was negative, CHF exacerbation unlikely. Patient switched to long prednisone taper for discharge. Echo was completed during admission which showed LVEF of 55% without significant abnormalities. Instructed to follow up with pulmonology after discharge and to followup with PCP. Patient condition improved, stable for discharge at this time. Minutes to complete discharge: 36 Discharge Summary Problems reviewed: Yes Reason For Visit: COPD ASTHMA Current Active Problems Acute exacerbation of chronic obstructive pulmonary disease (COPD) (Chronic) Afib (Chronic) Asthma (Chronic) BPH (benign prostatic hyperplasia) (Chronic) CHF (congestive heart failure) (Chronic) COPD (chronic obstructive pulmonary disease) (Chronic) Sleep apnea (Chronic) Condition: Stable - Instructions Diet, Activity, Other Instructions: You were admitted for worsening of your COPD. You were treated with medications to help open up your lungs and with steroid medications to improve your breath. You will continue to take steroid medications when you leave the hospital. You were seen by the disposal worker (lung doctor) who recommended that you continue on the steroid medications, have home oxygen, and follow up with your lung doctor on the outside. MEDICATIONS START to take prednisone on a decreasing dose schedule: TAKE 40mg once a day for 1 week. Your last dose will be on June 13. TAKE 35mg once a day for 1 week. Your last dose will be on June 20. TAKE 30mg once a day for 1 week. Your last dose will be on June 27. TAKE 25mg once a day for 1 week. Your last dose will be on July 04. TAKE 20mg once a day for 1 week. Your last dose will be on July 11. Please follow up with your disposal worker to determine if you need to continue taking prednisone. See your disposal worker before you start taking 20mg once a day. Continue taking all of your other home medications as prescribed. REFERRALS Please follow up with your primary care doctor, Dr. Chet Ovalle, within 3-5 days. Please follow up with your disposal worker, Dr. Antonio Andrea, within 1 week. SPECIAL INSTRUCTIONS Continue to use the oxygen that you have and follow up with your lung doctor if you need to continue using oxygen at home. You were noted to have a density on your chest x-ray by your left 1st rib. You had a chest CT done here wich showed a calcification/ossification at the junction of sternum and rib without evidence of a rib lesion. If you have any symptoms of chest pain, shortness of breath, increased cough, fevers, dizziness, or any other general feelings of unwellness, please call 911 or go your nearest emergency room. Referrals: Gurwinder Thao MD [Staff Physician] - 1 Week Chet Ovalle [Primary Care Provider] - 1 Week Disposition: HOME - Home Medications Comprehensive Discharge Medication List: Ambulatory Orders Apixaban [Eliquis] 5 mg PO BID 05/31/19 Aspirin [Aspirin EC] 81 mg PO DAILY 05/31/19 Budesonide/Formeterol Fumarate [SYMBICORT 160/4.5mcg -] 1 puff IH BID 05/31/19 Carvedilol 25 mg PO DAILY 05/31/19 Furosemide 20 mg PO BID 05/31/19 Ipratropium/Albuterol Sulfate [Combivent Respimat 20-100 Mcg] 1 puff IH Q6H PRN 05/31/19 Omeprazole 40 mg PO DAILY 05/31/19 Sacubitril/Valsartan [Entresto 24 mg-26 mg Tablet] 1 tablet PO DAILY 05/31/19 Spironolactone 25 mg PO DAILY 05/31/19 Tamsulosin HCl 0.4 mg PO DAILY 05/31/19 predniSONE [Deltasone -] 5 mg PO DAILY #14 tablet 06/06/19 predniSONE [Deltasone -] 10 mg PO ASDIR #14 tab 06/06/19 predniSONE [Deltasone -] 20 mg PO UTDICT #28 tablet 06/06/19 predniSONE [Deltasone -] 40 mg PO UTDICT #7 tablet 06/06/19 Fluticasone Propionate [Flovent Hfa] 220 mcg IH BID #1 inhaler 06/07/19 This patient is new to me today: No Emergency Visit: Yes ED Registration Date: 05/31/19 Care time: The patient presented to the Emergency Department on the above date and was hospitalized for further evaluation of their emergent condition. Critical Care patient: No - Discharge Referral Referred to [facility] Med P.C.: No ATTENDING PHYSICIAN STATEMENT I saw and evaluated the patient. I reviewed the resident's note and discussed the case with the resident. I agree with the resident's findings and plan as documented. SUBJECTIVE: OBJECTIVE: ASSESSMENT AND PLAN:
[2019-06-08 07:29] VITALS: BP 115/69; PULSE 73; TEMP 97.8
[2019-06-08] MEDS: ALBUTEROL SO4 2.5/IPRATROPIUM 0.5 INH SOL 3 ML VIAL.NEB. NEB SCH (08:45)
[2019-06-08] MEDS: SPIRONOLACTONE 25 MG TABLET (FP) PO SCH (10:54)
[2019-06-08] MEDS: CARVEDILOL 25 MG TABLET (FP) PO SCH (10:54)
[2019-06-08] MEDS: predniSONE 20 MG TABLET (UD) PO SCH (10:54)
[2019-06-08] MEDS: TAMSULOSIN HCL 0.4 MG CAP PO SCH (10:55)
[2019-06-08] MEDS: ASPIRIN COATED 81 MG TABLET.EC PO SCH (10:55)
[2019-06-08] MEDS: SACUBITRIL/VALSARTAN 24 MG-26 MG TABLET PO SCH (10:55)
[2019-06-08] MEDS: FUROSEMIDE 20 MG TABLET (FP) PO SCH (10:55)
[2019-06-08] MEDS: BUDESONIDE/FORMETEROL FUMARATE 160/4.5 mcg INHALER IH SCH (10:55)
[2019-06-08] MEDS: PANTOPRAZOLE 40 MG TABLET (FP) PO SCH (10:55)
[2019-06-08] MEDS: APIXABAN 5 MG TABLET PO SCH (10:55)
[2019-06-08] MEDS: FLUTICASONE PROP 0.05% 16 GM NASAL SPRAY NS SCH (10:55)
== END 2019-06-08 11:30 | disposition home or self-care (01) | DRG 140 ==
LOC: JER 11:35 → JERBED 14:56 → J8W 20:03 → J5S 06-01 16:33
DX: J44.1 Chronic obstructive pulmonary disease with (acute) exacerbation (principal); J96.20 Acute and chronic respiratory failure, unspecified whether with hypoxia or hypercapnia; I50.22 Chronic systolic (congestive) heart failure; I48.91 Unspecified atrial fibrillation; N40.0 Benign prostatic hyperplasia without lower urinary tract symptoms; G47.33 Obstructive sleep apnea (adult) (pediatric); F19.20 Other psychoactive substance dependence, uncomplicated; I11.0 Hypertensive heart disease with heart failure; F14.10 Cocaine abuse, uncomplicated; E66.01 Morbid (severe) obesity due to excess calories; Z68.41 Body mass index [BMI] 40.0-44.9, adult
CPT/HCPCS: 36415; 71045-TC-FY; 71250-TC; 80048; 80053; 80307; 82550; 82803; 83735; 83880; 84100; 84484; 85025; 85027; 85610; 85730; 87804; 93005; 93010; 93306-TC; 94640; 94660; 94761; 97116-GP; 97161-GP; 99285-25

== ENCOUNTER 2019-11-26 09:25 | Emergency (ER) | payer OTHER ==
--- NOTE | 2019-11-26 09:35 | PDOC ---
Rapid Medical Evaluation Time Seen by Provider: 11/26/19 09:28 Medical Evaluation: Allergies Allergy/AdvReac Type Severity Reaction Status Date / Time ibuprofen [From Motrin] AdvReac Verified 06/01/19 15:29 11/26/19 09:30 I performed a brief in-person evaluation of this patient. Pt is a 59 y/o male who presents to the ED with complaint of RLE swelling and pain for the last 4-5 months. He spoke to his crutch maker and was advised to come to the ED to assess for DVT. The patient states he has a history of asthma and has had a blood clot in his heart. He is currently on Eliquis and ASA. He denies any sob or cp. Pertinent physical exam findings: 2+ pitting edema to the right lower leg just proximal to the ankle. No calf size discrepancy. No tenderness to palpation. I have ordered the following: RLE duplex Patient to proceed to ED for further evaluation. Discharge Disposition - Diagnosis Right leg swelling - Referrals - Patient Instructions - Post Discharge Activity
[2019-11-26 09:49] VITALS: BP 155/90; PULSE 71; TEMP 98.1; BMI 41.6
--- NOTE | 2019-11-26 11:42 | PDOC ---
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 Patient has right leg pain for the past 3 months. Pain score is 8/10, localized around mid thight . Patient denies SOB, dyspnea, N/V, Fever, chills, headaches. ROS: unremarkable except mentioned above PHM: Afib, Blood clot PSH: none SS: cigarrete 3 per days, alcohol use occassional, denies recreational drug Medication: Eliquis, ASA, naproxen, topomax Allergy: pollen,cat, dog. Family hx: negative 11/26/19 12:30 Past History - Medical History Allergies/Adverse Reactions: Allergies Allergy/AdvReac Type Severity Reaction Status Date / Time ibuprofen [From Motrin] AdvReac Verified 11/26/19 09:32 Home Medications: Ambulatory Orders Apixaban [Eliquis] 5 mg PO BID 05/31/19 Aspirin [Aspirin EC] 81 mg PO DAILY 05/31/19 Budesonide/Formeterol Fumarate [SYMBICORT 160/4.5mcg -] 1 puff IH BID 05/31/19 Carvedilol 25 mg PO DAILY 05/31/19 Furosemide 20 mg PO BID 05/31/19 Ipratropium/Albuterol Sulfate [Combivent Respimat 20-100 Mcg] 1 puff IH Q6H PRN 05/31/19 Omeprazole 40 mg PO DAILY 05/31/19 Sacubitril/Valsartan [Entresto 24 mg-26 mg Tablet] 1 tablet PO DAILY 05/31/19 Spironolactone 25 mg PO DAILY 05/31/19 Tamsulosin HCl 0.4 mg PO DAILY 05/31/19 predniSONE [Deltasone -] 5 mg PO DAILY #14 tablet 06/06/19 predniSONE [Deltasone -] 10 mg PO ASDIR #14 tab 06/06/19 predniSONE [Deltasone -] 20 mg PO UTDICT #28 tablet 06/06/19 predniSONE [Deltasone -] 40 mg PO UTDICT #7 tablet 06/06/19 Fluticasone Propionate [Flovent Hfa] 220 mcg IH BID #1 inhaler 06/07/19 Asthma: Yes Cardiac Disorders: Yes (afib, HF) COPD: (Yes, sleep apnea) CHF: Yes GI Disorders: Yes Disorders: Yes (BPH) HTN: Yes Other medical history: embolus in heart 2019 - Psycho-Social/Smoking History Smoking History: Current some day smoker Have you smoked in the past 12 months: Yes Number of Cigarettes Smoked Daily: 6 Information on smoking cessation initiated: No 'Breaking Loose' booklet given: 05/31/19 - Substance Abuse Hx (Audit-C & DAST Scrn) How often the patient has a drink containing alcohol: Never Score: In Men: 4 or > Positive; In Women: 3 or > Positive: 0 Screen Result (Pos requires Nsg. Audit-10AR): Negative In the last yr the pt used illegal drug/Rx for NonMed reason: No Score: Yes response is considered Positive: 0 Screen Result (Positive result requires Nsg. DAST-10): Negative Review of Systems - Review of Systems Able to Perform ROS?: Yes Respiratory: Yes: See HPI, Cough Musculoskeletal: Yes: Other (right thigh pain) *Physical Exam - Vital Signs Last Vital Signs Temp Pulse Resp BP Pulse Ox 98.1 F 71 16 155/90 99 11/26/19 09:33 11/26/19 09:33 11/26/19 09:33 11/26/19 09:33 11/26/19 09:33 - Physical Exam General Appearance: Yes: Nourished, Appropriately Dressed HEENT: positive: EOMI, NELSON Respiratory/Chest: positive: Lungs Clear, Normal Breath Sounds Cardiovascular: positive: Regular Rhythm, Regular Rate, S1, S2 Vascular Pulses: Dorsalis-Pedis (R): 3+, Doralis-Pedis (L): 3+ Gastrointestinal/Abdominal: positive: Normal Bowel Sounds, Soft Extremity: positive: Normal Capillary Refill, Other (Right thigh Pain on deep palpation. No redness, no swelling. No calves tenderness. 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 Duplex revealed negative result. Patient was not in respiratory distress, not hypoxia, not tachycardic. He was given IM 15mg [place] for pain relieve. He is diagnosed with leg pain. Patient was instructed to see orthopedic for further evaluation and continue his home med medication. 11/26/19 12:13 11/26/19 19:00 Discharge - Discharge Information Problems reviewed: Yes Clinical Impression/Diagnosis: Right leg pain Condition: Stable Disposition: HOME - Follow up/Referral Referrals: Nima Valencia DO [Staff Physician] - - Patient Discharge Instructions Patient Printed Discharge Instructions: DI for Leg Pain Additional Instructions: Patient was evaluated for blood clot on the right leg; however, Duplex was tested and revealed negative. Please see ortho for further evaluation. Referral has been given. If worsening as numbness, worsening pain, chest pain, please come back to the emergency room for further testing. - Post Discharge Activity
[2019-11-26] MEDS ORDERED: NAPROXEN 500 MG TABLET PO ONE (11:43)
--- NOTE | 2019-11-26 12:34 | PDOC ---
Documentation entered by Lindsey Traylor SCRIBE, acting as scribe for Anya Jarvis MD. Anya Jarvis MD: This documentation has been prepared by the Kymberly finch Xhesika, SCRIBE, under my direction and personally reviewed by me in its entirety. I confirm that the documentation accurately reflects all work, treatment, procedures, and medical decision making performed by me. Attending Attestation - Resident Resident Name: Patric Reddy - ED Attending Attestation I have performed the following: I have examined & evaluated the patient, The case was reviewed & discussed with the resident, I agree w/resident's findings & plan, Exceptions are as noted - HPI HPI: 11/26/19 11:26 The patient is a 59y/o M with a h/o asthma and blood clots (on Eliquis and ASA) who presents to the ED for RLE edema and pain x3 months. Pt states he spoke to his coordinator skill training program today about an appointment he has on Friday, brought up his pain and was advised to come to the ED to assess for DVT. The patient denies chest pain, shortness of breath, headache and dizziness. Denies fever, chills, cough, nausea, vomiting, diarrhea and constipation. Denies dysuria, frequency, urgency and hematuria. Allergies: ibuprofen - Physicial Exam PE: GENERAL: Awake, alert, and fully oriented, in no acute distress HEAD: No signs of trauma EYES: PERRLA, EOMI, sclera anicteric, conjunctiva clear ENT: Auricles normal inspection, hearing grossly normal, nares patent, oropharynx clear without exudates. Moist mucosa NECK: Normal ROM, supple, no lymphadenopathy, JVD, or masses LUNGS: Breath sounds equal, clear to auscultation bilaterally. No wheezes, and no crackles HEART: Regular rate and rhythm, normal S1 and S2, no murmurs, rubs or gallops ABDOMEN: Soft, nontender, normoactive bowel sounds. No guarding, no rebound. No masses EXTREMITIES: +Tenderness to R IT band. No rash, no swelling, no redness, no induration, no skin changes. Remainder of extremities with normal range of motion, no edema. No clubbing or cyanosis. No cords, erythema, or tenderness NEUROLOGICAL: Cranial nerves II through XII grossly intact. Normal speech. Motor and sensation intact SKIN: Warm, dry, normal turgor, no rashes or lesions noted. - Medical Decision Making Pt with history of DVT, was sent to r/o DVT. Low suspicion for DVT given the lateral location of the pain/tenderness. DVT study was negative. Suspect possibly IT band tightness. Stable for DC home. Discharge - Discharge Information Problems reviewed: Yes Clinical Impression/Diagnosis: Right leg pain Condition: Stable Disposition: HOME - Follow up/Referral Referrals: Nima Valencia DO [Staff Physician] - ON STAFF,NOT [Primary Care Provider] - - Patient Discharge Instructions Patient Printed Discharge Instructions: DI for Leg Pain Additional Instructions: Patient was evaluated for blood clot on the right leg; however, Duplex was tested and revealed negative. Please see ortho for further evaluation. Referral has been given. If worsening as numbness, worsening pain, chest pain, please come back to the emergency room for further testing. - Post Discharge Activity
[2019-11-26] MEDS ORDERED: KETOROLAC TROMETHAMINE 15 MG/ML VIAL ONE (12:58)
[2019-11-26] MEDS ORDERED: NAPROXEN 500 MG TABLET ONE (13:10)
== END 2019-11-26 13:00 | disposition home or self-care (01) ==
LOC: JER 09:25
DX: M79.604 Pain in right leg (principal)
CPT/HCPCS: 93971-TC; 99284-25

== ENCOUNTER 2022-10-05 18:57 | Emergency (ER) | payer OTHER ==
[2022-10-05 19:11] VITALS: BP 144/98; PULSE 86; RESP 20; TEMP 98.6; BMI 44.0
[2022-10-05] MEDS ORDERED: ALBUTEROL SO4 2.5/IPRATROPIUM 0.5 INH SOL 3 ML VIAL.NEB. NEB ONE ×2 (19:38→19:51)
[2022-10-05] MEDS ORDERED: methylPREDNISolone NA SUCC 125 MG/2 ML VIAL IVPB ONE (19:39)
[2022-10-05] MEDS ORDERED: methylPREDNISolone NA SUCC 125 MG/2 ML VIAL ONE (19:51)
[2022-10-05 20:36] LABS: BASO % 0.8 % (0-2.0); EOS % 7.2 % (0-4.5); HEMATOCRIT 38.9 % (35.4-49); HEMOGLOBIN 12.9 GM/dL (11.7-16.9); LYMPH % 28.5 % (8-40); MCH 25.7 pg (25.7-33.7); MEAN CELL VOLUME 77.8 fl (80-96); MEAN PLT VOLUME 7.7 fl (7.5-11.1); MONO % 10.1 % (3.8-10.2); NEUT % 53.4 % (42.8-82.8); PLATELET COUNT 223 10^3/uL (134-434); RDW 16.6 % (11.9-15.9)
[2022-10-05 20:43] LABS: INR 1.06 (0.83-1.09); PROTHROMBIN TIME (PATIENT) 12.3 SEC (9.7-13.0)
[2022-10-05 20:45] LABS: ACTIVATED PTT 40.9 SECONDS (25.2-36.5)
[2022-10-05 20:54] LABS: POTASSIUM 4.5 mmol/L (3.5-5.1)
[2022-10-05 20:56] LABS: ALBUMIN 3.1 g/dl (3.4-5.0); CALCIUM 8.2 mg/dL (8.5-10.1)
[2022-10-05 20:59] LABS: CREATININE 0.9 mg/dL (0.55-1.3)
[2022-10-05 21:01] LABS: BILIRUBIN,TOTAL 0.2 mg/dL (0.2-1); TOT PROT 6.7 g/dl (6.4-8.2)
[2022-10-05 21:04] LABS: N-TERMINAL BNP 843.6 pg/ml (5-125)
[2022-10-05] MEDS ORDERED: FUROSEMIDE 40 MG/4 ML INJECTABLE VIAL IVPUSH ONE (22:21)
[2022-10-05 22:30] LABS: VENOUS BASE EXCESS 0.2 mmol/L (-2-2); VENOUS O2 SATURATION 93.7 % (70-80); VENOUS PCO2 51.2 mmHg (38-52); VENOUS PH 7.337 (7.310-7.410)
== END 2022-10-06 00:44 | disposition home or self-care (01) ==
LOC: JER 18:57
PROC: 3E033NZ Introduction of Analgesics, Hypnotics, Sedatives into Peripheral Vein, Percutaneous Approach (ICD-10-PCS; principal; 2022-10-05)
PROC: 3E033GC Introduction of Other Therapeutic Substance into Peripheral Vein, Percutaneous Approach (ICD-10-PCS; 2022-10-05)
PROC: 3E0F7GC Introduction of Other Therapeutic Substance into Respiratory Tract, Via Natural or Artificial Opening (ICD-10-PCS; 2022-10-05)
DX: R06.02 Shortness of breath (principal); R07.89 Other chest pain; G47.30 Sleep apnea, unspecified; E66.3 Overweight; J45.901 Unspecified asthma with (acute) exacerbation; Z20.822 Contact with and (suspected) exposure to COVID-19; Z68.41 Body mass index [BMI] 40.0-44.9, adult
CPT/HCPCS: 0241U-QW; 36415; 71045-TC-FY; 80053; 82803; 83880; 84484; 85025; 85610; 85730; 93005; 93010; 99285-25

== ENCOUNTER 2023-06-20 09:22 | Emergency (ER) | payer OTHER ==
[2023-06-20 09:36] VITALS: BP 142/80; PULSE 90; RESP 22; TEMP 97.3; BMI 41.7
[2023-06-20] MEDS ORDERED: methylPREDNISolone NA SUCC 125 MG/2 ML VIAL IVPUSH ONE (09:48)
[2023-06-20] MEDS: ALBUTEROL SO4 2.5/IPRATROPIUM 0.5 INH SOL 3 ML VIAL.NEB. NEB SCH (09:53)
[2023-06-20] MEDS ORDERED: methylPREDNISolone NA SUCC 125 MG/2 ML VIAL ONE (10:09)
[2023-06-20] MEDS ORDERED: ALBUTEROL SO4 2.5/IPRATROPIUM 0.5 INH SOL 3 ML VIAL.NEB. NEB ONE (10:10)
[2023-06-20 11:04] LABS: BASO % 0.7 % (0-2.0); EOS % 9.4 % (0-4.5); HEMATOCRIT 40.7 % (35.4-49); HEMOGLOBIN 12.9 GM/dL (11.7-16.9); MCH 25.8 pg (25.7-33.7); MCHC 31.8 g/dl (32.0-35.9); MEAN CELL VOLUME 81.3 fl (80-96); MEAN PLT VOLUME 7.6 fl (7.5-11.1); MONO % 11.8 % (3.8-10.2); NEUT % 50.1 % (42.8-82.8); PLATELET COUNT 239 10^3/uL (134-434); RBC 5.01 M/mm3 (4.00-5.60); RDW 15.8 % (11.9-15.9); VENOUS BASE EXCESS 0.7 mmol/L (-2-2); VENOUS O2 SATURATION 79.2 % (70-80); VENOUS PCO2 60.1 mmHg (38-52); VENOUS PH 7.296 (7.310-7.410); WHITE BLOOD COUNT 6.6 K/mm3 (4.0-10.0)
[2023-06-20 11:19] LABS: POTASSIUM 4.9 mmol/L (3.5-5.1)
[2023-06-20 11:22] LABS: CALCIUM 8.5 mg/dL (8.5-10.1)
[2023-06-20 11:23] LABS: BLOOD UREA NITROGEN 13.4 mg/dL (7-18); MAGNESIUM 2.2 mg/dL (1.8-2.4)
[2023-06-20 11:26] LABS: CREATININE 0.9 mg/dL (0.55-1.3)
[2023-06-20 11:28] LABS: BILIRUBIN,TOTAL 0.2 mg/dL (0.2-1); TOT PROT 6.7 g/dl (6.4-8.2)
[2023-06-20 11:31] LABS: N-TERMINAL BNP 219.2 pg/ml (5-125)
[2023-06-20] MEDS ORDERED: guaiFENesin/D-METHORPHAN HB 10 ML UNIT-DOSE CUPS PO ONE (11:36)
[2023-06-20] MEDS ORDERED: AZITHROMYCIN 250 MG TABLET PO ONE (11:36)
[2023-06-20] MEDS ORDERED: guaiFENesin/D-METHORPHAN HB 10 ML UNIT-DOSE CUPS ONE (11:40)
[2023-06-20] MEDS ORDERED: AZITHROMYCIN 500 MG TABLET ONE (11:40)
== END 2023-06-20 13:30 | disposition home or self-care (01) ==
LOC: JER 09:22
PROC: 3E033GC Introduction of Other Therapeutic Substance into Peripheral Vein, Percutaneous Approach (ICD-10-PCS; principal; 2023-06-20)
PROC: 3E0F7GC Introduction of Other Therapeutic Substance into Respiratory Tract, Via Natural or Artificial Opening (ICD-10-PCS; 2023-06-20)
DX: R06.02 Shortness of breath (principal); J45.901 Unspecified asthma with (acute) exacerbation; R07.89 Other chest pain; U07.1 COVID-19; R05.9 Cough, unspecified
CPT/HCPCS: 0241U-QW; 36415; 71045-TC-FY; 80053; 82803; 83735; 83880; 84484; 85025; 93005; 93010; 99285-25

== ENCOUNTER 2023-06-23 14:43 | Emergency (ER) | payer OTHER ==
[2023-06-23 14:49] VITALS: TEMP 98.2; BMI 41.7
[2023-06-23] MEDS ORDERED: guaiFENesin 200 MG/10 ML 10 ML UNIT-DOSE CUPS PO ONE (15:56)
[2023-06-23] MEDS ORDERED: ALBUTEROL SO4 2.5/IPRATROPIUM 0.5 INH SOL 3 ML VIAL.NEB. NEB ONE ×3 (15:56→16:13)
[2023-06-23] MEDS ORDERED: guaiFENesin/D-METHORPHAN HB 10 ML UNIT-DOSE CUPS ONE (16:12)
[2023-06-23 17:42] VITALS: BP 118/80; PULSE 69; RESP 18
== END 2023-06-23 17:45 | disposition home or self-care (01) ==
LOC: JERFT 14:43
PROC: 3E0F7GC Introduction of Other Therapeutic Substance into Respiratory Tract, Via Natural or Artificial Opening (ICD-10-PCS; principal; 2023-06-23)
DX: R06.02 Shortness of breath (principal); R06.2 Wheezing; Z76.0 Encounter for issue of repeat prescription
CPT/HCPCS: 99283-25

== ENCOUNTER 2023-08-12 12:19 | Emergency (ER) | payer OTHER ==
[2023-08-12 12:28] VITALS: BP 108/70; PULSE 68; RESP 18; TEMP 98; BMI 44.0
[2023-08-12] MEDS ORDERED: ALBUTEROL SO4 0.083% IH SOL 2.5 MG/3 ML VIAL.NEB. NEB ONE (13:38)
[2023-08-12] MEDS: ALBUTEROL SO4 0.083% IH SOL 2.5 MG/3 ML VIAL.NEB. NEB ONE (13:49)
== END 2023-08-12 14:06 | disposition home or self-care (01) ==
LOC: JER 12:19
PROC: 3E0F7GC Introduction of Other Therapeutic Substance into Respiratory Tract, Via Natural or Artificial Opening (ICD-10-PCS; principal; 2023-08-12)
DX: S10.91XA Abrasion of unspecified part of neck, initial encounter (principal); J68.8 Other respiratory conditions due to chemicals, gases, fumes and vapors; T71.193A Asphyxiation due to mechanical threat to breathing due to other causes, assault, initial encounter; Y08.89XA Assault by other specified means, initial encounter
CPT/HCPCS: 99283-25

== ENCOUNTER 2023-10-29 14:11 | Inpatient (IN) | payer OTHER ==
[2023-10-29] MEDS ORDERED: ALBUTEROL SO4 2.5/IPRATROPIUM 0.5 INH SOL 3 ML VIAL.NEB. NEB ONE ×3 (14:48→19:54)
[2023-10-29 16:15] LABS: BASO % 0.3 % (0-2.0); EOS % 5.6 % (0-4.5); HEMATOCRIT 44.8 % (35.4-49); HEMOGLOBIN 14.5 GM/dL (11.7-16.9); LYMPH % 27.7 % (8-40); MCHC 32.3 g/dl (32.0-35.9); MEAN CELL VOLUME 80.7 fl (80-96); MEAN PLT VOLUME 7.3 fl (7.5-11.1); MONO % 11.8 % (3.8-10.2); NEUT % 54.6 % (42.8-82.8); PLATELET COUNT 236 10^3/uL (134-434); RBC 5.56 M/mm3 (4.00-5.60); RDW 16.5 % (11.9-15.9); WHITE BLOOD COUNT 6.2 K/mm3 (4.0-10.0)
[2023-10-29 16:18] LABS: VENOUS BASE EXCESS -1.1 mmol/L (-2-2); VENOUS O2 SATURATION 57.8 % (70-80); VENOUS PCO2 69.9 mmHg (38-52); VENOUS PH 7.228 (7.310-7.410)
[2023-10-29] MEDS ORDERED: DEXAMETHASONE SOD PHOSPHATE 10 MG/1 ML VIAL ONE (16:28)
[2023-10-29] MEDS ORDERED: MAGNESIUM SULFATE IN WATER 2 GM/50 ML IVPB IVPB ONE (16:28)
[2023-10-29 16:30] LABS: POTASSIUM 4.5 mmol/L (3.5-5.1)
[2023-10-29 16:33] LABS: ALBUMIN 3.4 g/dl (3.4-5.0); BLOOD UREA NITROGEN 13.3 mg/dL (7-18); MAGNESIUM 2.3 mg/dL (1.8-2.4)
[2023-10-29] MEDS: ALBUTEROL SO4 2.5/IPRATROPIUM 0.5 INH SOL 3 ML VIAL.NEB. NEB ONE (16:35)
[2023-10-29] MEDS: ACETAMINOPHEN 1000 MG/100 ML BAG IVPB ONE (16:35)
[2023-10-29] MEDS: ALBUTEROL SO4 0.083% IH SOL 2.5 MG/3 ML VIAL.NEB. NEB SCH (16:36)
[2023-10-29] MEDS: DEXAMETHASONE SOD PHOSPHATE 10 MG/1 ML VIAL IVPUSH ONE ×2 (16:36)
[2023-10-29] MEDS: methylPREDNISolone NA SUCC 125 MG/2 ML VIAL IVPUSH ONE (16:36)
[2023-10-29] MEDS: MAGNESIUM SULFATE IN WATER 2 GM/50 ML IVPB IVPB ONE (16:36)
[2023-10-29 16:38] LABS: BILIRUBIN,TOTAL 0.2 mg/dL (0.2-1); TOT PROT 6.9 g/dl (6.4-8.2)
[2023-10-29] MEDS ORDERED: ACETAMINOPHEN INJECTION 100 ML IVPB ONE (16:41)
[2023-10-29] MEDS ORDERED: POTASSIUM CHLORIDE ORAL LIQUID 20 MEQ/15 ML ONE (17:21)
[2023-10-29] MEDS: ALBUTEROL SO4 2.5/IPRATROPIUM 0.5 INH SOL 3 ML VIAL.NEB. NEB SCH ×2 (17:47→19:57)
[2023-10-29] MEDS: APIXABAN 5 MG TABLET PO SCH (22:19)
[2023-10-29] MEDS: BUDESONIDE/FORMETEROL FUMARATE 160/4.5 mcg INHALER IH SCH (22:24)
[2023-10-29 22:54] VITALS: BMI 42.7
[2023-10-30] MEDS: FUROSEMIDE 20 MG TABLET (FP) PO SCH (06:00)
[2023-10-30 08:16] LABS: BASO % 0.1 % (0-2.0); EOS % 0.1 % (0-4.5); HEMATOCRIT 38.6 % (35.4-49); HEMOGLOBIN 12.7 GM/dL (11.7-16.9); LYMPH % 11.3 % (8-40); MCH 26.6 pg (25.7-33.7); MEAN CELL VOLUME 80.7 fl (80-96); MEAN PLT VOLUME 7.5 fl (7.5-11.1); MONO % 7.5 % (3.8-10.2); PLATELET COUNT 220 10^3/uL (134-434); RBC 4.78 M/mm3 (4.00-5.60); RDW 16.5 % (11.9-15.9); WHITE BLOOD COUNT 6.8 K/mm3 (4.0-10.0)
[2023-10-30 08:38] LABS: BLOOD UREA NITROGEN 15.5 mg/dL (7-18); CALCIUM 8.7 mg/dL (8.5-10.1)
[2023-10-30 08:41] LABS: CREATININE 0.9 mg/dL (0.55-1.3)
[2023-10-30 08:54] LABS: POTASSIUM 4.6 mmol/L (3.5-5.1)
[2023-10-30] MEDS: SPIRONOLACTONE 25 MG TABLET PO SCH (10:04)
[2023-10-30] MEDS: TAMSULOSIN HCL 0.4 MG CAP PO SCH (10:04)
[2023-10-30] MEDS: PANTOPRAZOLE 40 MG TABLET PO SCH (10:04)
[2023-10-30] MEDS: methylPREDNISolone NA SUCC 40 MG/1 ML VIAL IVPUSH SCH (10:06)
[2023-10-30] MEDS: TIOTROPIUM BROMIDE 2.5 MCG (SPIRIVA) RESPIMAT INHALER IH SCH (14:03)
[2023-10-30] MEDS: ACETAMINOPHEN 325 MG TABLET (FP) PO PRN (20:05)
[2023-10-31 08:40] LABS: BASO % 0.1 % (0-2.0); HEMATOCRIT 40.2 % (35.4-49); HEMOGLOBIN 13.1 GM/dL (11.7-16.9); LYMPH % 5.7 % (8-40); MCH 25.9 pg (25.7-33.7); MCHC 32.6 g/dl (32.0-35.9); MEAN CELL VOLUME 79.3 fl (80-96); MEAN PLT VOLUME 7.6 fl (7.5-11.1); MONO % 5.4 % (3.8-10.2); NEUT % 88.8 % (42.8-82.8); PLATELET COUNT 229 10^3/uL (134-434); RBC 5.07 M/mm3 (4.00-5.60); RDW 16.5 % (11.9-15.9); WHITE BLOOD COUNT 9.2 K/mm3 (4.0-10.0)
[2023-10-31 09:23] LABS: POTASSIUM 4.5 mmol/L (3.5-5.1)
[2023-10-31 09:25] LABS: CALCIUM 8.6 mg/dL (8.5-10.1)
[2023-10-31 09:26] LABS: BLOOD UREA NITROGEN 22.7 mg/dL (7-18)
[2023-10-31 09:31] LABS: BILIRUBIN,TOTAL 0.9 mg/dL (0.2-1); TOT PROT 6.2 g/dl (6.4-8.2)
[2023-10-31] MEDS: SACUBITRIL/VALSARTAN 24 MG-26 MG TABLET PO SCH ×2 (10:06→17:38)
[2023-10-31] MEDS: CARVEDILOL 25 MG TABLET (FP) PO SCH ×2 (10:07→17:38)
[2023-10-31 10:38] LABS: COCAINE, UR NEGATIVE (NEGATIVE); METHADONE, UR NEGATIVE (NEGATIVE); OPIATES, URI NEGATIVE (NEGATIVE); URINE AMPHETAMINES NEGATIVE (NEGATIVE); URINE BENZODIAZEPINES NEGATIVE (NEGATIVE)
[2023-10-31 10:39] LABS: URINE BARBITURATES NEGATIVE (NEGATIVE)
[2023-10-31 10:40] LABS: PHENCYCLIDINE,URINE NEGATIVE (NEGATIVE)
[2023-10-31] MEDS: oxyCODONE HCL 5 MG TABLET PO ONE (13:22)
[2023-11-01] MEDS: ALBUTEROL SO4 0.083% IH SOL 2.5 MG/3 ML VIAL.NEB. NEB PRN (02:11)
[2023-11-01 13:54] VITALS: BP 121/82; RESP 18; TEMP 97.3
[2023-11-01] MEDS ORDERED: guaiFENesin/D-METHORPHAN HB 10 ML UNIT-DOSE CUPS PO PRN (14:41)
[2023-11-01 15:22] VITALS: PULSE 61
== END 2023-11-01 18:16 | disposition home or self-care (01) | DRG 133 ==
LOC: JER 14:11 → JERBED 18:39 → J7W 21:09
PROVIDERS: ADMIT Internal Medicine
DX: J96.01 Acute respiratory failure with hypoxia (principal); I11.0 Hypertensive heart disease with heart failure; I50.9 Heart failure, unspecified; I48.91 Unspecified atrial fibrillation; J44.1 Chronic obstructive pulmonary disease with (acute) exacerbation; J45.41 Moderate persistent asthma with (acute) exacerbation; Z79.01 Long term (current) use of anticoagulants; G47.33 Obstructive sleep apnea (adult) (pediatric); E66.01 Morbid (severe) obesity due to excess calories; E78.5 Hyperlipidemia, unspecified; N40.0 Benign prostatic hyperplasia without lower urinary tract symptoms; Z68.41 Body mass index [BMI] 40.0-44.9, adult; F14.90 Cocaine use, unspecified, uncomplicated
CPT/HCPCS: 0241U-QW; 36415; 71045-TC-FY; 80048; 80053; 80307; 82803; 83735; 85025; 93005; 93010; 94640; 94660; 97161-GP; 99285-25; J0131; J1100

== ENCOUNTER 2023-12-19 10:46 | Observation (INO) | payer OTHER ==
[2023-12-19] MEDS ORDERED: ALBUTEROL SO4 2.5/IPRATROPIUM 0.5 INH SOL 3 ML VIAL.NEB. NEB SCH (11:15)
[2023-12-19] MEDS ORDERED: ALBUTEROL SO4 2.5/IPRATROPIUM 0.5 INH SOL 3 ML VIAL.NEB. NEB ONE ×2 (11:17→12:15)
[2023-12-19] MEDS: ALBUTEROL SO4 2.5/IPRATROPIUM 0.5 INH SOL 3 ML VIAL.NEB. NEB SCH (11:22)
[2023-12-19 11:27] LABS: BASO % 0.7 % (0-2.0); EOS % 6.5 % (0-4.5); HEMATOCRIT 42.6 % (35.4-49); LYMPH % 27.6 % (8-40); MCH 26.4 pg (25.7-33.7); MEAN CELL VOLUME 80.2 fl (80-96); MEAN PLT VOLUME 7.6 fl (7.5-11.1); MONO % 12.6 % (3.8-10.2); NEUT % 52.6 % (42.8-82.8); PLATELET COUNT 248 10^3/uL (134-434); RBC 5.31 M/mm3 (4.00-5.60); RDW 16.7 % (11.9-15.9); WHITE BLOOD COUNT 4.6 K/mm3 (4.0-10.0)
[2023-12-19 11:51] LABS: POTASSIUM 4.4 mmol/L (3.5-5.1)
[2023-12-19 11:53] LABS: CALCIUM 8.6 mg/dL (8.5-10.1)
[2023-12-19 11:54] LABS: ALBUMIN 3.3 g/dl (3.4-5.0); BLOOD UREA NITROGEN 15.5 mg/dL (7-18)
[2023-12-19 11:57] LABS: CREATININE 1.1 mg/dL (0.55-1.3)
[2023-12-19 11:59] LABS: BILIRUBIN,TOTAL 0.2 mg/dL (0.2-1); TOT PROT 6.9 g/dl (6.4-8.2)
[2023-12-19] MEDS: ALBUTEROL SO4 2.5/IPRATROPIUM 0.5 INH SOL 3 ML VIAL.NEB. NEB ONE (12:37)
[2023-12-19] MEDS: methylPREDNISolone NA SUCC 40 MG/1 ML VIAL IVPUSH SCH (18:31)
[2023-12-19] MEDS: methylPREDNISolone NA SUCC 125 MG/2 ML VIAL IVPUSH ONE (18:31)
[2023-12-19] MEDS: LEVALBUTEROL HCL 0.63 MG/3 ML VIAL.NEB. IH SCH (20:30)
[2023-12-19] MEDS: IPRATROPIUM BR 0.02% 0.5 MG/2.5 ML VIAL.NEB. NEB SCH (20:30)
[2023-12-19] MEDS: APIXABAN 5 MG TABLET PO SCH (21:57)
[2023-12-19] MEDS: AZITHROMYCIN IVPB 500 MG/250 ML BAG IVPB ONE (21:57)
[2023-12-19] MEDS: BUDESONIDE/FORMETEROL FUMARATE 160/4.5 mcg INHALER IH SCH (22:52)
[2023-12-20 01:20] LABS: COCAINE, UR NEGATIVE (NEGATIVE); METHADONE, UR NEGATIVE (NEGATIVE); URINE BENZODIAZEPINES NEGATIVE (NEGATIVE)
[2023-12-20 01:21] LABS: OPIATES, URI NEGATIVE (NEGATIVE); PHENCYCLIDINE,URINE NEGATIVE (NEGATIVE); URINE BARBITURATES NEGATIVE (NEGATIVE)
[2023-12-20 01:24] LABS: URINE AMPHETAMINES NEGATIVE (NEGATIVE)
[2023-12-20] MEDS ORDERED: methylPREDNISolone NA SUCC 40 MG/1 ML VIAL IVPUSH ONE (02:00)
[2023-12-20] MEDS: AZITHROMYCIN IVPB 500 MG in DEXTROSE 5%-WATER - 250 ML IVPB ONE (02:02)
[2023-12-20 07:46] LABS: HEMATOCRIT 41.9 % (35.4-49); HEMOGLOBIN 13.6 GM/dL (11.7-16.9); MCH 26.3 pg (25.7-33.7); MCHC 32.5 g/dl (32.0-35.9); MEAN CELL VOLUME 80.8 fl (80-96); MEAN PLT VOLUME 7.9 fl (7.5-11.1); PLATELET COUNT 238 10^3/uL (134-434); POTASSIUM 4.3 mmol/L (3.5-5.1); RBC 5.18 M/mm3 (4.00-5.60); RDW 16.4 % (11.9-15.9); WHITE BLOOD COUNT 6.8 K/mm3 (4.0-10.0)
[2023-12-20 07:50] LABS: CALCIUM 8.7 mg/dL (8.5-10.1)
[2023-12-20 07:51] LABS: BLOOD UREA NITROGEN 16.6 mg/dL (7-18); MAGNESIUM 2.3 mg/dL (1.8-2.4)
[2023-12-20 07:54] LABS: CREATININE 0.9 mg/dL (0.55-1.3); PHOSPHOROUS 2.4 mg/dL (2.5-4.9)
[2023-12-20] MEDS: predniSONE 20 MG TABLET (UD) PO SCH (09:23)
[2023-12-20] MEDS: PANTOPRAZOLE 40 MG TABLET PO SCH (09:23)
[2023-12-20] MEDS: AZITHROMYCIN IVPB 250 MG in DEXTROSE 5%-WATER - 250 ML IVPB SCH (09:24)
[2023-12-20] MEDS ORDERED: PANTOPRAZOLE SODIUM 40 MG VIAL IVPUSH SCH (10:00)
[2023-12-20] MEDS: NAPH,MB-DB/K PH,MBDB POWDER PACKET PO ONE (14:56)
[2023-12-20] MEDS ORDERED: CYCLOBENZAPRINE HCL 10 MG TABLET (FP) PO PRN (15:59)
[2023-12-20] MEDS: ASPIRIN COATED 81 MG TABLET.EC PO SCH (16:44)
[2023-12-20 19:01] VITALS: RESP 18
[2023-12-20] MEDS ORDERED: lamiVUDine 150 MG TABLET PO SCH (22:00)
[2023-12-20] MEDS ORDERED: MYCOPHENOLATE MOFETIL 500 MG TABLET PO SCH (22:00)
[2023-12-20] MEDS ORDERED: DOLUTEGRAVIR SODIUM 50 MG TABLET (NON-FORMULARY) PO SCH (22:00)
[2023-12-20] MEDS ORDERED: SODIUM BICARBONATE 650 MG TABLET PO SCH (22:00)
[2023-12-20] MEDS: MONTELUKAST NA 10 MG TABLET PO SCH (22:25)
[2023-12-20] MEDS: SACUBITRIL/VALSARTAN 24 MG-26 MG TABLET PO SCH (22:25)
[2023-12-21 08:08] LABS: POTASSIUM 4.1 mmol/L (3.5-5.1)
[2023-12-21 08:20] LABS: ALBUMIN 2.7 g/dl (3.4-5.0); MAGNESIUM 2.2 mg/dL (1.8-2.4)
[2023-12-21 08:22] LABS: BLOOD UREA NITROGEN 15.6 mg/dL (7-18)
[2023-12-21 08:24] LABS: CREATININE 0.8 mg/dL (0.55-1.3); PHOSPHOROUS 3.1 mg/dL (2.5-4.9)
[2023-12-21 08:25] LABS: BILIRUBIN,TOTAL 0.2 mg/dL (0.2-1); TOT PROT 5.7 g/dl (6.4-8.2)
[2023-12-21] MEDS: FUROSEMIDE 40 MG TABLET (FP) PO SCH (09:33)
[2023-12-21] MEDS ORDERED: PANTOPRAZOLE 40 MG TABLET PO SCH (10:00)
[2023-12-21] MEDS ORDERED: TAMSULOSIN HCL 0.4 MG CAP PO SCH (10:00)
[2023-12-21] MEDS ORDERED: ISOSORBIDE MONONITRATE 30 MG TAB.SR.24H (FP) PO SCH (10:00)
[2023-12-21 11:44] VITALS: BP 136/74; PULSE 66; TEMP 98.2
[2023-12-21] MEDS ORDERED: methylPREDNISolone NA SUCC 40 MG/1 ML VIAL IVPUSH SCH (22:00)
[2023-12-22] MEDS ORDERED: predniSONE 20 MG TABLET (UD) PO SCH (10:00)
== END 2023-12-21 13:55 | disposition home or self-care (01) ==
LOC: JER 10:46 → JERBED 14:03 → INTOOBSV 14:03 → UNDOADMOB 14:03 → JERBED 15:57 → J4W 17:53
PROVIDERS: ADMIT Internal Medicine; ATTEND Internal Medicine
PROC: 3E0F7GC Introduction of Other Therapeutic Substance into Respiratory Tract, Via Natural or Artificial Opening (ICD-10-PCS; principal; 2023-12-19)
PROC: 3E03329 Introduction of Other Anti-infective into Peripheral Vein, Percutaneous Approach (ICD-10-PCS; 2023-12-19)
PROC: 3E033GC Introduction of Other Therapeutic Substance into Peripheral Vein, Percutaneous Approach (ICD-10-PCS; 2023-12-19)
DX: J44.1 Chronic obstructive pulmonary disease with (acute) exacerbation (principal); I25.10 Atherosclerotic heart disease of native coronary artery without angina pectoris; I11.9 Hypertensive heart disease without heart failure; Z72.0 Tobacco use
CPT/HCPCS: 0241U-QW; 36415; 71045-TC-FY; 80048; 80053; 80307; 83735; 84100; 84484; 85025; 85027; 93005; 93010; 94640; 94660; 96365; 96366; 96375; 99285-25; G0378

== ENCOUNTER 2024-03-02 09:54 | Emergency (ER) | payer OTHER ==
[2024-03-02] MEDS ORDERED: ALBUTEROL SO4 2.5/IPRATROPIUM 0.5 INH SOL 3 ML VIAL.NEB. NEB ONE ×2 (10:24→10:47)
[2024-03-02] MEDS ORDERED: methylPREDNISolone NA SUCC 125 MG/2 ML VIAL ONE (10:29)
[2024-03-02] MEDS: ALBUTEROL SO4 2.5/IPRATROPIUM 0.5 INH SOL 3 ML VIAL.NEB. NEB SCH (10:29)
[2024-03-02] MEDS: methylPREDNISolone NA SUCC 125 MG/2 ML VIAL IVPUSH ONE (11:05)
[2024-03-02 11:20] LABS: VENOUS BASE EXCESS -4.7 mmol/L (-2-2); VENOUS O2 SATURATION 92.6 % (70-80); VENOUS PCO2 37.8 mmHg (38-52); VENOUS PH 7.349 (7.310-7.410)
[2024-03-02 11:29] LABS: BASO % 0.7 % (0-2.0); EOS % 3.3 % (0-4.5); HEMATOCRIT 42.2 % (35.4-49); HEMOGLOBIN 13.8 GM/dL (11.7-16.9); LYMPH % 29.8 % (8-40); MCH 26.4 pg (25.7-33.7); MCHC 32.8 g/dl (32.0-35.9); MEAN CELL VOLUME 80.6 fl (80-96); MONO % 11.3 % (3.8-10.2); NEUT % 54.9 % (42.8-82.8); PLATELET COUNT 245 10^3/uL (134-434); RBC 5.24 M/mm3 (4.00-5.60); RDW 16.2 % (11.9-15.9); WHITE BLOOD COUNT 5.8 K/mm3 (4.0-10.0)
[2024-03-02 11:39] LABS: BLOOD UREA NITROGEN 11.2 mg/dL (7-18); CALCIUM 8.1 mg/dL (8.5-10.1)
[2024-03-02 11:42] LABS: PHOSPHOROUS 3.1 mg/dL (2.5-4.9)
[2024-03-02 11:44] LABS: BILIRUBIN,TOTAL 0.3 mg/dL (0.2-1); TOT PROT 6.2 g/dl (6.4-8.2)
[2024-03-02 11:47] LABS: N-TERMINAL BNP 538.4 pg/ml (5-125)
[2024-03-02 11:50] VITALS: BP 121/81; PULSE 79; RESP 24; TEMP 97.8; BMI 40.6
[2024-03-02 11:59] LABS: ACTIVATED PTT 38.6 SECONDS (25.2-36.5); INR 0.86 (0.83-1.09); PROTHROMBIN TIME (PATIENT) 9.9 SEC (9.7-13.0)
== END 2024-03-02 16:00 | disposition home or self-care (01) ==
LOC: JER 09:54
PROC: 3E033GC Introduction of Other Therapeutic Substance into Peripheral Vein, Percutaneous Approach (ICD-10-PCS; principal; 2024-03-02)
PROC: 3E0F7GC Introduction of Other Therapeutic Substance into Respiratory Tract, Via Natural or Artificial Opening (ICD-10-PCS; 2024-03-02)
DX: R06.02 Shortness of breath (principal); J44.1 Chronic obstructive pulmonary disease with (acute) exacerbation; F17.210 Nicotine dependence, cigarettes, uncomplicated; Z20.822 Contact with and (suspected) exposure to COVID-19
CPT/HCPCS: 0241U-QW; 36415; 71045-TC-FY; 80053; 82803; 83735; 83880; 84100; 84484; 85025; 85610; 85730; 86850; 86900; 86901; 93005; 93010; 94640; 96374; 99285-25